=== PATIENT | female | born 1990 | race Caucasian/White ===

== ENCOUNTER 2018-04-19 11:50 | Emergency (ER) | payer BC, SELFPAY ==
--- NOTE | 2018-04-19 12:56 | EDPHYS ---
Physician Documentation [facility] Name: Michelle Guidry Age: 28 yrs Sex: Female : 1990 Arrival Date: 04/19/2018 Time: 11:53 Bed 23 Private MD: Leslie Cummings H ED Physician Sorin Diamond HPI: 04/19 12:47 This 28 yrs old Female presents to ER via Ambulatory with complaints of rn Anxiety, Shoulder Pain. 12:48 Reports anxiety, had bad panic attack on Wednesday in [place], has had anxiety since rn 14years old, used to take alprazolam, not anymore, no fever, feels better now, no chest pain, feels intermittent heart racing and tingling. Was taken to hospital on Wednesday, assumes everything ok. . Onset: The symptoms/episode began/occurred at an unknown time. Severity of symptoms: At their worst the symptoms were moderate in the emergency department the symptoms have improved. The patient has experienced similar episodes in the past. The patient has been recently seen by a physician:. 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 - Social history:: Smoking status: Patient/guardian denies using tobacco. - Family history:: not pertinent. - Ebola Screening: : Patient negative for fever greater than or equal to 101.5 degrees Fahrenheit, and additional compatible Ebola Virus Disease symptoms Patient denies exposure to infectious person Patient denies travel to an Ebola-affected area in the 21 days before illness onset No symptoms or risks identified at this time. - Hospitalizations: : No recent hospitalization is reported. ROS: 12:48 Constitutional: Negative for fever, chills, and weight loss, Eyes: Negative for injury, rn pain, redness, and discharge, Neck: Negative for injury, pain, and swelling, Cardiovascular: Negative for chest pain, and edema, Respiratory: Negative for cough, wheezing, and pleuritic chest pain, Abdomen/GI: Negative for abdominal pain, nausea, vomiting, diarrhea, and constipation, MS/Extremity: Negative for injury and deformity, Skin: Negative for injury, rash, and discoloration, Neuro: Negative for headache, weakness, and seizure. Exam: 12:48 Constitutional: This is a well developed, well nourished patient who is awake, alert, rn appears anxious Head/Face: Normocephalic, atraumatic. Eyes: Pupils equal round and reactive to light, extra-ocular motions intact. Cardiovascular: Regular rate and rhythm with a normal S1 and S2. No gallops, murmurs, or rubs. Normal PMI, no JVD. No pulse deficits. Respiratory: Lungs have equal breath sounds bilaterally, clear to auscultation and percussion. No rales, rhonchi or wheezes noted. No increased work of breathing, no retractions or nasal flaring. Skin: Warm, dry with normal turgor. Normal color with no rashes, no lesions, and no evidence of cellulitis. MS/ Extremity: Pulses equal, no cyanosis. Neurovascular intact. Full, normal range of motion. Equal circumference. Neuro: Awake and alert, GCS 15, oriented to person, place, time, and situation. Cranial nerves II-XII grossly intact. Motor strength 5/5 in all extremities. Sensory grossly intact. Cerebellar exam normal. Normal gait. Vital Signs: 12:01 BP 133 / 104; Pulse 94; Resp 18; Temp 99.4; Pulse Ox 98% ; Weight 56.7 kg; Height 5 ft. sv 0 in. (152.40 cm); Pain 0/10; 13:03 BP 127 / 90; Pulse 84; Resp 17; Pulse Ox 100% on R/A; Pain 0/10; ed1 12:01 Body Mass Index 24.41 (56.70 kg, 152.40 cm) sv MDM: 12:38 Patient medically screened. rn 12:55 Differential Diagnosis anxiety. Data reviewed: vital signs, nurses notes, and as a rn result, I will discharge patient. Counseling: I had a detailed discussion with the patient and/or guardian regarding: the historical points, exam findings, and any diagnostic results supporting the discharge/admit diagnosis, the need for outpatient follow up, to return to the emergency department if symptoms worsen or persist or if there are any questions or concerns that arise at home. Special discussion: I discussed with the patient/guardian in detail that at this point there is no indication for admission to the hospital. It is understood, however, that if the symptoms persist or worsen the patient needs to return immediately for re-evaluation. 04/19 12:45 Order name: Urine Test (obtain specimen); Complete Time: 12:55 rn Administered Medications: No medications were administered Disposition: 04/19/18 12:56 Discharged to Home. Impression: Anxiety disorder, unspecified. - Condition is Stable. - Discharge Instructions: Panic Attacks, Generalized Anxiety Disorder. - Prescriptions for Celexa 20 mg Oral Tablet - take 1 tablet by ORAL route once daily; 30 tablet. Valium 2 mg Oral Tablet - take 1 tablet by ORAL route once daily As needed; 10 tablet. - Medication Reconciliation Form, Thank You Letter, Antibiotic Education, Prescription Opioid Use form. - Follow up: Private Physician; When: As needed; Reason: Recheck today's complaints, Re-evaluation by your physician. - Problem is an ongoing problem. - Symptoms have improved. Signatures: Brenda Cade, RN RN Sorin Diamond MD MD rn Smirch, Shelby, RN RN Shannan Buenrostro LVN ENAMEL CRACKER ed1 Corrections: (The following items were deleted from the chart) 13:05 12:56 04/19/2018 12:56 Discharged to Home. Impression: Anxiety disorder, unspecified. ed1 Condition is Stable. Forms are Medication Reconciliation Form, Thank You Letter, Antibiotic Education, Prescription Opioid Use. Follow up: Private Physician; When: As needed; Reason: Recheck today's complaints, Re-evaluation by your physician. Problem is an ongoing problem. Symptoms have improved. rn
--- NOTE | 2018-04-19 12:56 | ER ---
Nurse's Notes [facility] Name: Michelle Guidry Age: 28 yrs Sex: Female : 1990 Arrival Date: 04/19/2018 Time: 11:53 Bed 23 Private MD: Leslie Cummings H Diagnosis: Anxiety disorder, unspecified Presentation: 04/19 11:57 Presenting complaint: Patient states: anxiety attack 2 days ago and feels SOB since sv then. Pt reports 2 days ago when she had it she passed out from hyperventilating and the EMS was there but doesn't remember anything. Transition of care: patient was not received from another setting of care. Onset of symptoms was April 17, 2018. Care prior to arrival: None. 11:57 Method Of Arrival: Ambulatory sv 11:57 Acuity: ROGER 4 sv 12:52 Risk Assessment: Do you want to hurt yourself or someone else? Patient reports no ed1 desire to harm self or others. Initial Sepsis Screen: Does the patient meet any 2 criteria? No. Patient's initial sepsis screen is negative. Does the patient have a suspected source of infection? No. Patient's initial sepsis screen is negative. 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 - Social history:: Smoking status: Patient/guardian denies using tobacco. - Family history:: not pertinent. - Ebola Screening: : Patient negative for fever greater than or equal to 101.5 degrees Fahrenheit, and additional compatible Ebola Virus Disease symptoms Patient denies exposure to infectious person Patient denies travel to an Ebola-affected area in the 21 days before illness onset No symptoms or risks identified at this time. - Hospitalizations: : No recent hospitalization is reported. Screenin:45 Abuse screen: Denies threats or abuse. Denies injuries from another. Nutritional ss screening: No deficits noted. Tuberculosis screening: Never had TB. Fall Risk None identified. Assessment: 12:45 General: Appears uncomfortable, Behavior is quiet, tearful. Reports "the other day I ss was out with some friends in [place] and there were so many people and I just had a really bad panic attack and then I just lost it and passed out. I just haven't felt the same since." Denies fever, feeling ill, fatigue, chills. Pain: Denies pain. Neuro: Level of Consciousness is awake, alert, obeys commands, Oriented to person, place, time, situation. Cardiovascular: Capillary refill < 3 seconds is brisk in bilateral fingers. Respiratory: Airway is patent Respiratory effort is even, unlabored, Respiratory pattern is regular, symmetrical. GI: Patient currently denies diarrhea, nausea, vomiting. EENT: Nares are clear Oral mucosa is moist. Derm: Skin is intact, is healthy with good turgor, Skin is dry, Skin is pink, warm \\T\\ dry. normal. 13:03 Reassessment: Patient appears in no apparent distress at this time. No changes from ed1 previously documented assessment. Patient and/or family updated on plan of care and expected duration. Pain level reassessed. Patient is alert, oriented x 3, equal unlabored respirations, skin warm/dry/pink. Patient states symptoms have not improved. Vital Signs: 12:01 BP 133 / 104; Pulse 94; Resp 18; Temp 99.4; Pulse Ox 98% ; Weight 56.7 kg; Height 5 ft. sv 0 in. (152.40 cm); Pain 0/10; 13:03 BP 127 / 90; Pulse 84; Resp 17; Pulse Ox 100% on R/A; Pain 0/10; ed1 12:01 Body Mass Index 24.41 (56.70 kg, 152.40 cm) sv ED Course: 11:53 Patient arrived in ED. as 11:54 Leslie Cummings DO is Private Physician. as 11:59 Triage completed. sv 12:01 Arm band placed on right wrist. sv 12:38 Sorin Diamond MD is Attending Physician. rn 12:45 Nuvia Mccord RN is Primary Nurse. ss 12:45 Patient has correct armband on for positive identification. Bed in low position. Call ss light in reach. 12:52 Primary Nurse role handed off by Nuvia Mccord RN ed1 12:52 Shannan Buenrostro LVN is Primary Nurse. ed1 13:03 No provider procedures requiring assistance completed. Patient did not have IV access ed1 during this emergency room visit. Administered Medications: No medications were administered Outcome: 12:56 Discharge ordered by . rn 13:03 Discharged to home ambulatory. ed1 13:03 Condition: good 13:03 Discharge instructions given to patient, Instructed on discharge instructions, follow up and referral plans. medication usage, Demonstrated understanding of instructions, follow-up care, medications, Prescriptions given X 2. 13:05 Patient left the ED. ed1 Signatures: Brenda Cade RN RN sv Martinez, Amelia as Nieto, Roman, MD MD rn Smirch, Shelby, RN RN Shannan Buenrostro LVN LVN ed1
== END 2018-04-19 13:05 | disposition home or self-care (01) ==
LOC: ER 11:50
DX: F41.9 Anxiety disorder, unspecified (principal); M25.519 Pain in unspecified shoulder; I10 Essential (primary) hypertension; Z88.1 Allergy status to other antibiotic agents; Z88.0 Allergy status to penicillin; Z88.2 Allergy status to sulfonamides
CPT/HCPCS: 99282

== ENCOUNTER 2020-08-31 17:55 | Emergency (ER) | payer OTHER, SELFPAY ==
[2020-08-31] MEDS ORDERED: PROMETHAZINE INJ 25 MG/ML AMP ONE (18:31)
[2020-08-31] MEDS ORDERED: NA CHLORIDE 0.9% 1,000 ML ONE (18:32)
[2020-08-31] MEDS ORDERED: MORPHINE 4 MG/ML SYR ONE (18:32)
[2020-08-31 18:56] LABS: Basophils % 0.3 % (0-1.3); Hematocrit 40.9 % (36.0-45.0); MPV 8.5 fL (7.6-11.3); RBC Red Blood Cell Count 4.79 M/uL (3.86-4.86)
[2020-08-31] MEDS ORDERED: DIAZEPAM 10 MG/2 ML INJ SYRINGE ONE (19:19)
--- NOTE | 2020-08-31 19:27 | ER ---
Nurse's Notes [facility] Name: Michelle Guidry Age: 30 yrs Sex: Female : 1990 Arrival Date: 08/31/2020 Time: 18:01 Bed 18 Private MD: Diagnosis: Uterine fibroid;pelvic pain Presentation: 08/31 18:15 Chief complaint: Patient states: pelvic pain that started yesterday after getting a em depo shot, is supposed to have a D\T\C on Sep.10 due to blood in uterus that is not draining, also reports nausea, denies fever or vaginal bleeding. 18:15 Method Of Arrival: Wheelchair em 18:15 Coronavirus screen: Client denies travel out of the [place] in the last 14 days. Ebola em Screen: Patient negative for fever greater than or equal to 101.5 degrees Fahrenheit, and additional compatible Ebola Virus Disease symptoms Patient denies exposure to infectious person. Patient denies travel to an Ebola-affected area in the 21 days before illness onset. No symptoms or risks identified at this time. Initial Sepsis Screen: Does the patient meet any 2 criteria? HR > 90 bpm. No. Patient's initial sepsis screen is negative. Does the patient have a suspected source of infection? No. Patient's initial sepsis screen is negative. Risk Assessment: Do you want to hurt yourself or someone else? Patient reports no desire to harm self or others. Onset of symptoms was August 30, 2020. 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 - Social history:: Smoking status: Patient denies any tobacco usage or history of. Screenin:15 Abuse screen: Denies threats or abuse. Denies injuries from another. Nutritional wh screening: No deficits noted. Tuberculosis screening: No symptoms or risk factors identified. Fall Risk None identified. Assessment: 19:10 General: Appears in no apparent distress. Behavior is calm, cooperative, appropriate wh for age. Pain: Complains of pain in abdomen Pain does not radiate. Pain currently is 7 out of 10 on a pain scale. Quality of pain is described as crampy. Neuro: Level of Consciousness is awake, alert, obeys commands, Oriented to person, place, time, situation, Appropriate for age. Cardiovascular: Heart tones S1 S2. Respiratory: Airway is patent Respiratory effort is even, unlabored, Respiratory pattern is regular, symmetrical, Breath sounds are clear bilaterally. GI: Abdomen is flat, Abd is soft Abdomen is tender to palpation. : No signs and/or symptoms were reported regarding the genitourinary system. EENT: No signs and/or symptoms were reported regarding the EENT system. Derm: Skin is intact, is healthy with good turgor, Skin is pink, warm \T\ dry. normal. Musculoskeletal: Circulation, motion, and sensation intact. 20:01 Reassessment: Patient appears in no apparent distress at this time. No changes from previously documented assessment. Patient and/or family updated on plan of care and expected duration. Pain level reassessed. Patient is alert, oriented x 3, equal unlabored respirations, skin warm/dry/pink. Patient states feeling better. Patient states symptoms have improved. Vital Signs: 18:15 BP 148 / 98; Pulse 103; Resp 18; Temp 98.3(O); Pulse Ox 100% on R/A; Height 4 ft. 11 em in. (149.86 cm); Pain 10/10; 19:45 BP 128 / 75; Pulse 76; Resp 18; Pulse Ox 99% on R/A; ED Course: 18:01 Patient arrived in ED. mr 18:11 Johnathon Vasquez, RN is Primary Nurse. em 18:15 Arm band placed on. em 18:16 Melissa Navarrete FNP-C is PHCP. snw 18:16 Sorin Diamond MD is Attending Physician. snw 18:32 Initial lab(s) drawn, by me, sent to lab. Inserted saline lock: 20 gauge in right em antecubital area, using aseptic technique. Blood collected. 18:36 Triage completed. em 19:15 Patient has correct armband on for positive identification. Placed in gown. Bed in low wh position. Call light in reach. Side rails up X 1. Pulse ox on. NIBP on. 19:31 US Pelvis Complete In Process Unspecified. EDMS 19:37 Ultrasound completed. Patient tolerated well. Notified CAP LINING MACHINE OPERATOR/PA vance. sg3 20:02 No provider procedures requiring assistance completed. IV discontinued, intact, bleeding controlled, No redness/swelling at site. Administered Medications: 18:32 Drug: NS 0.9% 1000 ml Route: IV; Rate: 1 bolus; Site: right antecubital; em 20:00 Follow up: Response: No adverse reaction; IV Status: Completed infusion 18:32 Drug: Phenergan 12.5 mg Route: IVP; Site: right antecubital; em 19:59 Follow up: Response: No adverse reaction; Nausea is decreased 18:34 Drug: morphine 4 mg Route: IVP; Site: right antecubital; em 20:00 Follow up: Response: No adverse reaction; Pain is decreased; RASS: Alert and Calm (0) 19:25 Drug: Valium 5 mg {Note: RASS 0.} Route: IVP; Site: right antecubital; 20:00 Follow up: Response: No adverse reaction; RASS: Alert and Calm (0) 19:59 Drug: TORadol 60 mg Route: IM; Site: right gluteus; 20:03 Follow up: Response: No adverse reaction Outcome: 19:26 Discharge ordered by . snw 20:02 Discharged to home ambulatory, with family. 20:02 Condition: stable 20:02 Discharge instructions given to patient, family, Instructed on discharge instructions, follow up and referral plans. no drinking with medication, no driving heavy equipment, medication usage, POC Demonstrated understanding of instructions, follow-up care, medications, POC Prescriptions given X 1. 20:11 Patient left the ED. Signatures: Dispatcher [employer] EDMS Melissa Navarrete, STEFANOC SERVICE ESTABLISHMENT ATTENDANT-Pamella Loredo Edgar, RN RN Deon Paz Leti Coles sg3
--- NOTE | 2020-08-31 19:27 | EDPHYS ---
Physician Documentation [facility] Name: Michelle Guidry Age: 30 yrs Sex: Female : 1990 Arrival Date: 08/31/2020 Time: 18:01 Bed 18 Private MD: ED Physician Sorin Diamond HPI: 08/31 18:22 This 30 yrs old Female presents to ER via Unassigned with complaints of snw Pelvic Pain. 18:22 Onset: The symptoms/episode began/occurred gradually, and became worse and became snw persistent today. Associated signs and symptoms: Pertinent positives: unable to stand erect without pain. Modifying factors: The patient symptoms are alleviated by nothing. It is unknown whether or not the patient has had similar symptoms in the past. The patient has been recently seen by a physician: Dr. Torre, pt had depo shot yesterday and D\T\C scheduled for Sep.11 to evacuate uterus of blood from an ablation 4 days ago. Pt called Dr. Torre and has not gotten an answer. 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 - Social history:: Smoking status: Patient denies any tobacco usage or history of. ROS: 18:22 Constitutional: Negative for fever, chills, and weight loss, Eyes: Negative for injury, snw pain, redness, and discharge, ENT: Negative for injury, pain, and discharge, Neck: Negative for injury, pain, and swelling, Cardiovascular: Negative for chest pain, palpitations, and edema, Respiratory: Negative for shortness of breath, cough, wheezing, and pleuritic chest pain, Abdomen/GI: Negative for abdominal pain, nausea, vomiting, diarrhea, and constipation, Back: Negative for injury and pain, MS/Extremity: Negative for injury and deformity, Skin: Negative for injury, rash, and discoloration, Neuro: Negative for headache, weakness, numbness, tingling, and seizure, Psych: Negative for depression, anxiety, suicide ideation, homicidal ideation, and hallucinations. 18:22 : Positive for pelvic pain, Negative for vaginal bleeding. Exam: 18:24 Head/Face: Normocephalic, atraumatic. snw 18:24 Eyes: Pupils equal round and reactive to light, extra-ocular motions intact. Lids and lashes normal. Conjunctiva and sclera are non-icteric and not injected. Cornea within normal limits. Periorbital areas with no swelling, redness, or edema. ENT: Nares patent. No nasal discharge, no septal abnormalities noted. Tympanic membranes are normal and external auditory canals are clear. Oropharynx with no redness, swelling, or masses, exudates, or evidence of obstruction, uvula midline. Mucous membranes moist. Neck: Trachea midline, no thyromegaly or masses palpated, and no cervical lymphadenopathy. Supple, full range of motion without nuchal rigidity, or vertebral point tenderness. No Meningismus. Chest/axilla: Normal chest wall appearance and motion. Nontender with no deformity. No lesions are appreciated. Cardiovascular: Regular rate and rhythm with a normal S1 and S2. No gallops, murmurs, or rubs. Normal PMI, no JVD. No pulse deficits. Respiratory: Lungs have equal breath sounds bilaterally, clear to auscultation and percussion. No rales, rhonchi or wheezes noted. No increased work of breathing, no retractions or nasal flaring. Back: No spinal tenderness. No costovertebral tenderness. Full range of motion. Skin: Warm, dry with normal turgor. Normal color with no rashes, no lesions, and no evidence of cellulitis. MS/ Extremity: Pulses equal, no cyanosis. Neurovascular intact. Full, normal range of motion. Neuro: Awake and alert, GCS 15, oriented to person, place, time, and situation. Cranial nerves II-XII grossly intact. Motor strength 5/5 in all extremities. Sensory grossly intact. Cerebellar exam normal. Normal gait. Psych: Awake, alert, with orientation to person, place and time. Behavior, mood, and affect are within normal limits. 18:24 Constitutional: The patient appears alert, awake, anxious, in obvious pain. 18:24 Abdomen/GI: Inspection: distension, that is moderate, gravid appearance, is noted, Bowel sounds: normal, Palpation: moderate abdominal tenderness, in all quadrants. Vital Signs: 18:15 BP 148 / 98; Pulse 103; Resp 18; Temp 98.3(O); Pulse Ox 100% on R/A; Height 4 ft. 11 em in. (149.86 cm); Pain 10/10; 19:45 BP 128 / 75; Pulse 76; Resp 18; Pulse Ox 99% on R/A; wh MDM: 18:18 Patient medically screened. snw 18:25 Data reviewed: vital signs, nurses notes. snw 18:50 ED course: pt to have ultrasound at this time. snw 19:23 Data interpreted: Pulse oximetry: on room air is 100 %. Interpretation: normal. snw Counseling: I had a detailed discussion with the patient and/or guardian regarding: the historical points, exam findings, and any diagnostic results supporting the discharge/admit diagnosis, the presence of at least one elevated blood pressure reading (>120/80) during this emergency department visit, lab results, radiology results, the need for outpatient follow up, to return to the emergency department if symptoms worsen or persist or if there are any questions or concerns that arise at home. Response to treatment: the patient's symptoms have mildly improved after treatment. Special discussion: Based on the patient's Hx, exam, and Dx evaluation, there is no indication for emergent surgery or inpatient Tx. It is understood by the patient/guardian that if the Sx's persist or worsen they need to return immediately for re-evaluation. 19:33 Response to treatment: the patient's symptoms have markedly improved after treatment. snw 08/31 18:17 Order name: CBC with Diff snw 08/31 18:17 Order name: TS snw 08/31 18:18 Order name: US Pelvis Complete snw 08/31 19:04 Order name: Manual Differential EDMS 08/31 20:10 Order name: ABO/RH no charge EDMS Administered Medications: 18:32 Drug: NS 0.9% 1000 ml Route: IV; Rate: 1 bolus; Site: right antecubital; em 20:00 Follow up: Response: No adverse reaction; IV Status: Completed infusion 18:32 Drug: Phenergan 12.5 mg Route: IVP; Site: right antecubital; em 19:59 Follow up: Response: No adverse reaction; Nausea is decreased wh 18:34 Drug: morphine 4 mg Route: IVP; Site: right antecubital; 20:00 Follow up: Response: No adverse reaction; Pain is decreased; RASS: Alert and Calm (0) 19:25 Drug: Valium 5 mg {Note: RASS 0.} Route: IVP; Site: right antecubital; 20:00 Follow up: Response: No adverse reaction; RASS: Alert and Calm (0) 19:59 Drug: TORadol 60 mg Route: IM; Site: right gluteus; 20:03 Follow up: Response: No adverse reaction Disposition: 09/01 07:37 Co-signature as Attending Physician, Sorin Diamond MD. rn Disposition: 08/31/20 19:26 Discharged to Home. Impression: Uterine fibroid, pelvic pain. - Condition is Stable. - Discharge Instructions: Uterine Fibroids, Pelvic Pain, Female, Abdominal or Pelvic Ultrasound. - Prescriptions for Tylenol- Codeine #3 300-30 mg Oral Tablet - take 2 tablet by ORAL route every 6 hours As needed; 30 tablet. - Medication Reconciliation Form, Thank You Letter, Antibiotic Education, Prescription Opioid Use form. - Follow up: Emergency Department; When: As needed; Reason: Worsening of condition. Follow up: Private Physician; When: 2 - 3 days; Reason: Recheck today's complaints, Continuance of care, Re-evaluation by your physician. Signatures: Dispatcher [employer] Melissa Bustamante, ARPAN-[employer] PERFORMANCE MAKEUP ARTIST-Csnw Johnathon Vasquez RN RN em Nieto, Roman, MD MD rn Habalo, Winsy Corrections: (The following items were deleted from the chart) 08/31 20:11 19:26 08/31/2020 19:26 Discharged to Home. Impression: Uterine fibroid; pelvic pain. Condition is Stable. Forms are Medication Reconciliation Form, Thank You Letter, Antibiotic Education, Prescription Opioid Use. Follow up: Emergency Department; When: As needed; Reason: Worsening of condition. Follow up: Private Physician; When: 2 - 3 days; Reason: Recheck today's complaints, Continuance of care, Re-evaluation by your physician. snw
--- NOTE | 2020-08-31 19:42 | RAD REPORT ---
EXAM DESCRIPTION: US - Pelvis Complete - 08/31/2020 7:31 pm CLINICAL HISTORY: severe pain Pelvic pain. COMPARISON: No comparisons FINDINGS: The uterus is seen to contain a 2.2 x 2.1 cm mass along the posterior myometrium abutting the endometrial stripe. This suggests a submucosal fibroid. The uterus measures 7.7 x 4.0 x 4.5 cm. The endometrial stripe measures 4 mm, normal. The right ovary is obscured by bowel gas. The left ovary is normal in size, shape and echotexture measuring 4.5 x 2.1 cm. Normal blood flow is seen to the left ovary. Mild pelvic ascites. IMPRESSION: 2.2 cm submucosal fibroid along the posterior myometrial fundus region. Nonvisualization of the right ovary due to bowel gas. Mild pelvic ascites.
[2020-08-31 20:00] LABS: Blood Morphology Comment NOT SEEN (NOT SEEN); Platelet Estimate ADEQ
[2020-08-31] MEDS ORDERED: KETOROLAC 30 MG/ML INJ ONE (20:06)
[2020-08-31 20:18] VITALS: TEMP 98.3
[2020-08-31 20:20] VITALS: BP 128/75; O2SAT 99
== END 2020-08-31 20:11 | disposition home or self-care (01) ==
LOC: ER 17:55
DX: D25.0 Submucous leiomyoma of uterus (principal); I10 Essential (primary) hypertension; Z88.0 Allergy status to penicillin; Z88.1 Allergy status to other antibiotic agents; Z88.2 Allergy status to sulfonamides
CPT/HCPCS: 96361; 85025; 36415; 86900; 86850; 86901; 76856; 96375; 96372; 96374; 99284; J2550; J3360; J7030

== ENCOUNTER 2024-09-26 07:47 | Emergency (ER) | payer BC ==
--- OUTSIDE RECORDS SUMMARY | 2024-09-26 07:50 | XMS REPORT | Continuity of Care Document ---
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 Name Role Phone COSTA ACHARYA JR Primary Care Physician Jon Morel MD Attending Clinician JON MÁRQUEZ Attending Clinician Unavailable DILMA_[email or web address]_S Attending Clinician Unavaila LAURA Luong Attending Clinician Unavailable JON MÁRQUEZ Admitting Clinician Unavailable DILMA_[email or web address]_S Admitting Clinician Unavaila anne-marie Payers Payer Name Policy Type Policy Number Effective Date Expirati on Date Source MULTIPLAN-GPA/PP O 2 [id number] 2022 00:00:00 Allergies, Adverse Reactions, Alerts Allergy Name Allergy Type Status Severity Reaction(s) Onset Date Inactive Date Treating Clinician Comments Source Predniso ne Propensi ty to adverse reaction s Active Other - See comments 03-30 00:00: [address] [facility] PREDNISO NE DRUG INGREDI Active Other-Cmnt 03-30 00:00: 00 [facility] CIPROFLO XACIN (BULK) DRUG Active Rash 2015-11 00:00: 00 [facility] SULFA (SULFONA MIDE ANTIBIOT ICS) Drug Class Active Rash 2015-11 00:00: 00 [facility] Ciproflo xacin (Bulk) Propensi ty to adverse reaction s Active Rash 2015-11 00:00: 00 [facility] Sulfa (Sulfona mide Antibiot ics) Propensi ty to adverse reaction s Active Rash 2015-11 00:00: 00 [facility] Social History Social Habit Start Date Stop Date Quantity Comments [facility] 1990 [facility]00 1990 00:00:00 [facility] Smoking Status Start Date Stop Date Source Tobacco smoking consumption unknown [facility] Medications Ordered Medication Name Filled Medication Name Start Date Stop Date Current Medication? Ordering Clinician Indication Dosage Frequency Signature (SIG) Comments Components Source iopamidol (ISOVUE 370-500 mL) injection 80 mL 2022-11 22:15: 00 09-22 22:15 :00 No [id number] 80mL 80 mL, Intravenou s, ONCE, 1 dose, On Wed09/22/23 at 1615, Routine [facility] NaCl 0.9% (NS) injection 5 mL 2022-11 21:10: 31 Yes 5mL 5 mL, Slow IV Push, PRN - SEE INSTRUCTIO NS, Starting on Wed09/22/23 at 1510, Until Discontinu ed, [address] [facility] lisinopril 20 mg tablet 2022-11 19:00: 46 09-22 00:00 :00 No 20mg Take 20 mg by mouth daily. [facility] diazePAM (VALIUM) 2 mg tablet 2022-11 19:00: 46 09-22 00:00 :00 No 2mg Take 2 mg by mouth 3 (three) times daily. [facility] methIMAzole 5 mg tablet 2022-11 00:00: 00 Yes [id number] 5mg Take 1 tablet by mouth in the morning. [facility] atenoloL 25 mg tablet 2022-11 00:00: 00 Yes [id number] 25mg Take 1 tablet by mouth in the morning. [facility] gabapentin (NEURONTIN) 100 mg capsule 08-01 00:00: 00 09-22 00:00 :00 No 100mg Take 1 capsule by mouth 3 (three) times daily. [facility] traMADOL (ULTRAM) 50 mg tablet 08-01 00:00: 00 09-22 00:00 :00 No 50mg Take 1 tablet by mouth every 6 (six) hours as needed for Pain (scale 4-6). [facility] ondansetron (ZOFRAN) 4 mg tablet 05-06 00:00: 00 Yes 4mg Take 1 tablet by mouth every 8 (eight) hours as needed for Nausea and Vomiting (N/V). [facility] traMADOL (ULTRAM) 50 mg tablet 04-26 00:00: 00 09-22 00:00 :00 No 50mg Take 1 tablet by mouth every 6 (six) hours as needed for Pain (scale 7-10). [facility] ketorolac (TORADOL) 10 mg tablet 2015-11 00:00: 00 09-22 00:00 :00 No 10mg Take 1 tablet by mouth every 6 (six) hours as needed for Pain (scale 7-10). [facility] Vital Signs Vital Name Observation Time Observation Value Comments S daisy Systolic blood pressure 2023-09-23 01:00:00 140 mm[Hg] [facility] Diastolic blood pressure 2023-09-23 01:00:00 100 mm[Hg] [facility] Heart rate 2023-09-23 01:00:00 94 /min [facility] Body temperature 2023-09-23 01:00:00 36.94 Yoselin [facility] Respiratory rate 2023-09-23 01:00:00 18 /min [facility] Oxygen saturation in Arterial blood by Pulse oximetry 2023-09-23 01:00:00 100 /min [facility] Body height 2023-09-22 20:59:00 149.9 cm [facility] Body weight 2023-09-22 20:59:00 65.318 kg [facility] BMI 2023-09-22 20:59:00 29.08 kg/m2 [facility] Procedures Procedure Date / Time Performed Performing Clinician Source URINALYSIS 2023-09-22 22:58:00 Jon M[facility]quez [facility] POCT GLUCOSE(AGE >30DAYS) 2023-09-22 21:42:00 Jon Márquez [facility] POCT GLUCOSE (AUTOMATED) 2023-09-22 21:40:00 Jon Márquez [facility] TROPONIN I 2023-09-22 21:36:00 Jon M[facility]quez [facility] FREE T4 2023-09-22 21:36:00 Jon M[facility]quez [facility] THYROID STIMULATING HORMONE 2023-09-22 21:36:00 Jon Márquez [facility] BASIC METABOLIC PANEL (NA, K, CL, CO2, GLUCOSE, BUN, CREATININE, CA) 2023-09-22 21:36:00 Jon Márquez [facility] CBC WITHOUT DIFF 2023-09-22 21:36:00 Jon Márquez [facility] PROTHROMBIN TIME / INR 2023-09-22 21:36:00 Neptali Márquez [facility] ACTIVATED PARTIAL THRMPLAS SHAR 2023-09-22 21:36:00 Jon Márquez [facility] CT STROKE ANGIOGRAM HEAD 2023-09-22 21:33:00 Jon Márquez [facility] CT STROKE ANGIOGRAM NECK 2023-09-22 21:33:00 Jon Márquez [facility] CT STROKE HEAD WO CONTRAST 2023-09-22 21:22:00 Jon Márquez [facility] NOTICE OF PRIVACY PRACTICES 2023-09-22 20:53:59 Doctor Unassigned, [place] [facility] CONSENT/REFUSAL FOR DIAGNOSIS AND TREATMENT 2023-09-22 20:53:04 Doctor Unassigned, [place] [facility] Encounters Start Date/Time End Date/Time Encounter Type Admission Type Attending Clinicians Care Facility Care Department Encounter ID Source 2023-09-22 15:11:00 2023-09-22 19:14:[address] [facility] [id number] [facility] 2023-09-22 15:11:00 2023-09-22 19:14:00 Emergency X JON MÁRQUEZ [facility] ERT [id number] [facility] 2023-09-08 00:00:00 2023-09-08 00:00:00 Outpatient GC_[email or web address] diyala_S PRIV PRIV [id number] [facility] 2022-11-25 16:30:00 2022-11-25 16:30:00 Outpatient LAURA CONWAY [id number] Yarelis Hernández Results Test Description Test Time Test Comments Results Result Co mments Source [id number] 22:10:39* Test Item Value Reference Range Interpretation Comme nts FREE T4 (test code = 9503305433) 3.59 See_Comment H [Automated messa ge] The system which generated this result transmitted reference range: 0.78 - 2.20 ng/dL:. The reference range was not used to interpret this result as normal/abnormal. Lab Interpretation (test code = 22350-9) [facility]normal [facility] - Code [id number] 22:05:39* Test Item Value Reference Range Interpretation Comme nts TROPONIN I (test code = 2681712382) 0.025 ng/mL <=0.034 JOSE (test code = JOSE) Reference (Normal) Range (defined by the 99th percentile reference limit): <= 0.034 ng/mL Note: Cardiac troponin begins to rise 3-4 hours after the onset of ischemia. Repeat in 4-6 hours if the sample was drawn within 3-4 hours of the onset of the symptom and found normal. Diagnosis of myocardial injury is made with acute changes in cTn concentrations with at least one serial sample above the 99th percentile upper reference limit (URL), taken together with the patient's clinical presentation. Biotin has been reported to cause a negative bias, interpret results relative to patient's use of biotin. Lab Interpretation (test code = 95646-2) Normal [facility] - Code [id number] 21:57:39* Test Item Value Reference Range Interpretation Comme [facility] APTT Patient (test code = 3173-2) 26 See_Comment [Automated message] The system which generated this result transmitted reference range: 23 - 38 Seconds. The reference range was not used to interpret this result as normal/abnormal. JOSE (test code = JOSE) The [facility] patient population mean normal value for aPTT is 30 seconds. Lab Interpretation (test code = 68154-7) Normal [facility] / INR - Code [id number] 21:55:41* Test Item Value Reference Range Interpretation Comme [facility] PROTIME PATIENT (test code = 5964-2) 13.0 See_Comment [Automated messa ge] The system which generated this result transmitted reference range: 12.0 - 14.7 Seconds. The reference range was not used to interpret this result as normal/abnormal. INR (test code = 6301-6) 1.0 Normal INR <1.1; Warfarin Therapeutic range 2.0 to 3.0 or 2.5 to 3.5, depending upon the indications. Lab Interpretation (test code = 39840-1) Normal [facility] (NA, K, CL, CO2, Glucose, BUN, Creatinine, CA) - Code [id number] 21:53:19* Test Item Value Reference Range Interpretation Comme [facility] NA (test code = 1262077522) 140 mmol/L 135-145 K (test code = 2522406024) 4.4 mmol/L 3.5-5.0 CL (test code = 5457269376) 103 mmol/L 98-108 CO2 TOTAL (test code = 4004141224) 22 mmol/L 23-31 L AGAP (test code = 2384420314) 15 2-16 BUN (test code = 4947254011) 8 mg/dL 7-23 GLUCOSE (test code = 4150782730) 112 mg/dL 70-110 H CREATININE (test code = 6737203917) 0.42 mg/dL 0.50-1.04 L CALCIUM (test code = 0875466042) 10.0 mg/dL 8.6-10.6 eGFR (test code = 29562-9) 132.6 mL/min/1.73m2 CKD-EPI eGFR (2020). Assuming creatinine has been stable day-to-day for at least three months, the eGFR indicates Category G1 (>= 90 mL/min/1.73 m2) Lab Interpretation (test code = 49693-6) Abnormal [facility] without Diff - Code [id number] 21:44:19* Test Item Value Reference Range Interpretation Comme nts WBC (test code = 6690-2) 8.39 See_Comment [Automated message] The system which generated this result transmitted reference range: 4.30 - 11.10 10*3/?L. The reference range was not used to interpret this result as normal/abnormal. RBC (test code = 789-8) 5.50 See_Comment H [Automated message] The system which generated this result transmitted reference range: 3.93 - 5.25 10*6/?L. The reference range was not used to interpret this result as normal/abnormal. HGB (test code = 718-7) 14.9 g/dL 11.6-15.0 HCT (test code = 4544-3) 45.2 % 35.7-45.2 MCH (test code = 785-6) 27.1 pg 25.9-32.8 MCV (test code = 787-2) 82.2 fL 80.6-95.5 MCHC (test code = 786-4) 33.0 g/dL 31.6-35.1 PLT (test code = 777-3) 353 See_Comment [Automated message] The system which generated this result transmitted reference range: 166 - 358 10*3/?L. The reference range was not used to interpret this result as normal/abnormal. MPV (test code = 85460-0) 10.4 fL 9.5-12.9 RDW-CV (test code = 788-0) 11.5 % 12.0-15.5 L RDW-SD (test code = 51039-4) 34.4 fL 39.0-49.9 L NRBC x10^3 (test code = 5520453934) See_Comment [Automated messa ge] The system which generated this result transmitted reference range: 10*3/?L. The reference range was not used to interpret this result as normal/abnormal. NRBC/100 WBC (test code = 0016541017) 0.0 See_Comment [Automated messa ge] The system which generated this result transmitted reference range: 0.0 - 10.0 /100 WBCs. The reference range was not used to interpret this result as normal/abnormal. IPF % (test code = 0282011841) Lab Interpretation (test code = 97499-1) Abnormal [facility] GLUCOSE (AUTOMATED)2023-09-22 21:42:27* Test Item Value Reference Range Interpretation Comme nts POCT GLU (test code = 3951376214) 126 mg/dL 70-110 H Notified Provide r Lab Interpretation (test code = 37413-3) Abnormal [facility] Glucose (Age >30 Days) - Code Stroke 2023-09-22 21:42:00* Test Item Value Reference Range Interpretation Comme nts POCT Glu (age>30days) (test code = 3342) 126 mg/dL 70-110 A Lab Interpretation (test cod e = 34252-5) Abnormal [facility]
[2024-09-26 09:14] LABS: Specific Gravity 1.022 (1.005-1.030); Sqamous Epithelial <5 /HPF (None Seen); Urine Bacteria <20 /HPF (<20); Urine Bilirubin NEGATIVE (Negative); Urine Blood Negative (Negative); Urine Clarity Extremely Turbid (Clear); Urine Color Yellow (Yellow); Urine Crystals Unidentified Few /HPF (None Seen); Urine Culture Reflex Order REFLEXED; Urine Glucose NEGATIVE (Negative); Urine Ketones NEGATIVE (Negative); Urine Microscopic Reflex YN ORDER UMIC; Urine Mucus 1+ /HPF (None Seen); Urine Nitrite NEGATIVE (Negative); Urine Protein NEGATIVE (Negative); Urine Urobilinogen Normal (Normal); Urine WBC 20-50 /HPF (<5); Urine WBC Clump Rare /HPF (None Seen); Urine Yeast (Budding) Trace /HPF (None Seen); Urine pH 5.5 (5.0-7.0)
--- NOTE | 2024-09-26 09:23 | EDPHYS ---
Physician Documentation [facility] Name: Michelle Guidry Age: 34 yrs Sex: Female : 1990 Arrival Date: 09/26/2024 Time: 07:47 Bed 14 Private MD: ED Physician Stephen Wilkinson HPI: 09/26 09:17 This 34 yrs old Female presents to ER via Ambulatory with complaints of ec2 Urinary Problem. 09:17 Patient arrives today for dysuria. Patient reports some occasional nausea. No fevers or ec2 chills. Reports some flank pain as well. Reports no significant medical problems.. 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 - Infectious Disease History:: Denies. - Social history:: Smoking status: Patient denies any tobacco usage or history of. ROS: 09:17 Constitutional: as per hpi ec2 Exam: 09:17 Constitutional: GEN: NAD Head: atraumatic Eyes: EOMI Ears: External ears are ec2 normal. CV: regular rate LUNGS: no respiratory distress ABD: non-distended, soft, mild right CVA TTP. Abdomen is not guarding or rigid SKIN: no evidence of rashes MSK: no evidence of trauma Vital Signs: 08:07 BP 134 / 98; Pulse 94; Resp 16; Pulse Ox 100% on R/A; Weight 62.6 kg; Height 5 ft. 0 iw in. ; Pain 0/10; 10:00 BP 132 / 88; Pulse 84; Resp 16; Pulse Ox 100% on R/A; ko1 08:07 Body Mass Index 26.95 (62.60 kg, 152.4 cm) iw 08:07 Pain Scale: Adult iw MDM: 09:13 Medical Screening Exam initiated ec2 09:17 Data reviewed: vital signs, nurses notes. ED course: Patient arrives today for dysuria. ec2 Examination is remarkable for right CVA TTP. Urine studies show infectious markers consistent with urinary tract infection. Did order urine testing however patient has had a hysterectomy in the past. Will start the patient on antibiotics for pyelonephritis. Patient otherwise is simply well-appearing and in no acute distress with reassuring hemodynamics. Will discharge home have the patient follow-up PCP. Return precautions given.. 09:29 ED course: Patient reports multiple medication allergies however states that she ec2 believes she has tolerated Keflex which we will proceed with Keflex and monitor here.. 09:50 ED course: Patient tolerated Keflex without issue. Will prescribe the patient ec2 cefpodoxime for urinary tract infection, possible pyelonephritis. Return precautions given. 09/26 08:20 Order name: Urinalysis w/ reflexes; Complete Time: 09:16 iw 09/26 09:13 Order name: Test, Urine ec2 09/26 09:17 Order name: Urine Culture EDMS Administered Medications: 09:44 Drug: Cephalexin PO 500 mg PO once Route: PO; ko1 09:59 Follow up: Response: No adverse reaction; Medication administered at discharge. ko1 09:44 Drug: Ondansetron Oral Disintegrating Tablet Oral Disintegrating Tablet 4 mg PO once ko1 Route: PO; 09:59 Follow up: Response: No adverse reaction ko1 Disposition Summary: 09/26/24 09:51 Discharge Ordered Notes: Location: Home(09/26/24 09:51) ec2 Condition: Stable(09/26/24 09:51) ec2 Diagnosis - UTI/ Urinary tract infection, site not specified(09/26/24 09:51) ec2 Followup: ec2 - With: Private Physician - When: - Reason: Recheck today's complaints Discharge Instructions: - Discharge Summary Sheet ec2 - Urinary Tract Infection, Adult, [id number] ec2 Forms: - Medication Reconciliation Form ec2 - Antibiotic Education ec2 - Prescription Opioid Use ec2 - Patient Portal Instructions ec2 - Leadership Thank You Letter ec2 Prescriptions: - Zofran 4 mg Oral Tablet - take 1 tablet ORAL route every 12 hours As needed; 20 tablet; Refills: 0, ec2 Product Selection Permitted - cefpodoxime 100 mg Oral Tablet - take 1 tablet ORAL route every 12 hours for 10 days take with food; 20 tablet; ec2 Refills: 0, Product Selection Permitted Signatures: Dispatcher [employer] Melida Munoz RN RN iw Oliver, Kathy, RN RN ko1 Stephen Wilkinson MD MD ec2 Corrections: (The following items were deleted from the chart) : Home ec2 ec2 Stable ec2 ec2 : UTI/ Urinary tract infection, site not specified ec2 ec2
--- NOTE | 2024-09-26 09:23 | ER ---
Nurse's Notes [facility] Name: Michelle Guidry Age: 34 yrs Sex: Female : 1990 Arrival Date: 09/26/2024 Time: 07:47 Bed 14 Private MD: Diagnosis: UTI/ Urinary tract infection, site not specified Presentation: 09/26 08:07 Chief complaint: Patient states: thinks she has a UTI, having burning with urination iw and right flank pain, started last Wednesday , has been taking AZO. Coronavirus screen: At this time, the client does not indicate any symptoms associated with coronavirus-19. Ebola Screen: No symptoms or risks identified at this time. Initial Sepsis Screen: Does the patient meet any 2 criteria? No. Patient's initial sepsis screen is negative. Does the patient have a suspected source of infection? No. Patient's initial sepsis screen is negative. Risk Assessment: Do you want to hurt yourself or someone else? Patient reports no desire to harm self or others. Onset of symptoms was September 19, 2024. 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 - Infectious Disease History:: Denies. - Social history:: Smoking status: Patient denies any tobacco usage or history of. Screenin:40 [facility] ED Fall Risk Assessment (Adult) History of falling in the last 3 months, ko1 including since admission No falls in past 3 months (0 pts) Confusion or Disorientation No (0 pts) Intoxicated or Sedated No (0 pts) Impaired Gait No (0 pts) Mobility Assist Device Used No (0 pt) Altered Elimination No (0 pt) Score/Fall Risk Level 0 - 2 = Low Risk Oriented to surroundings, Maintained a safe environment, Assessed \T\ reinforced patient's understanding of fall precautions, Hourly rounding (assess needs \T\ fall precautionary measures) done. Abuse screen: Denies threats or abuse. Denies injuries from another. Nutritional screening: No deficits noted. Tuberculosis screening: No symptoms or risk factors identified. Assessment: 09:40 General: Appears in no apparent distress. Behavior is calm, cooperative, appropriate ko1 for age. Pain: Complains of pain in left low back and right low back. Neuro: No deficits noted. Cardiovascular: No deficits noted. Respiratory: No deficits noted. GI: No deficits noted. : Reports burning with urination. EENT: No deficits noted. Derm: No deficits noted. Musculoskeletal: No deficits noted. Vital Signs: 08:07 BP 134 / 98; Pulse 94; Resp 16; Pulse Ox 100% on R/A; Weight 62.6 kg; Height 5 ft. 0 iw in. ; Pain 0/10; 10:00 BP 132 / 88; Pulse 84; Resp 16; Pulse Ox 100% on R/A; ko1 08:07 Body Mass Index 26.95 (62.60 kg, 152.4 cm) iw 08:07 Pain Scale: Adult iw ED Course: 07:50 Patient arrived in ED. mg5 08:08 Triage completed. iw 08:10 Arm band placed on. iw 09:07 Stephen Wilkinson MD is Attending Physician. ec2 09:20 Debbie Monroe, ROSETTE is Primary Nurse. ko1 09:40 Patient has correct armband on for positive identification. Allergy band placed. Bed in ko1 low position. Call light in reach. Provided Education on: labs, meds. Pulse ox on. NIBP on. Door closed. Noise minimized. Lights dimmed. 09:40 No provider procedures requiring assistance completed. Patient did not have IV access ko1 during this emergency room visit. Administered Medications: :44 Drug: Cephalexin PO 500 mg PO once Route: PO; ko1 09:59 Follow up: Response: No adverse reaction; Medication administered at discharge. ko1 09:44 Drug: Ondansetron Oral Disintegrating Tablet Oral Disintegrating Tablet 4 mg PO once ko1 Route: PO; 09:59 Follow up: Response: No adverse reaction ko1 Medication: 10:00 VIS not applicable for this client. ko1 Outcome: :22 Discharge ordered by . ec2 09:51 Discharge ordered by . ec2 10:01 Discharged to home ambulatory, ko1 10:01 Condition: stable 10:01 Discharge instructions given to patient, Instructed on discharge instructions, follow up and referral plans. medication usage, Demonstrated understanding of instructions, follow-up care, medications, Prescriptions given X 2, 10:09 Patient left the ED. ko1 Addendum: 09/29/2024 07:49 Addendum: Culture Results: Positive urine culture. No further action required. Bacteria e b sensitive to prescribed antibiotic. Signatures: Melida Boyd, RN Vee Ribeiro Kathy, RN RN ko1 Belen Castelan mg5 Stephen Wilkinson MD MD ec2
[2024-09-26] MEDS ORDERED: CEPHALEXIN 250 MG CAP ONE (09:37)
[2024-09-26] MEDS ORDERED: ONDANSETRON 4 MG (ODT) TAB ONE (09:37)
[2024-09-26 10:20] VITALS: O2SAT 100
[2024-09-26 10:24] VITALS: BP 132/88
[2024-09-26 15:27] LABS: Specific Gravity 1.022 (1.005-1.030)
== END 2024-09-26 10:09 | disposition home or self-care (01) ==
LOC: ER 07:47
DX: N39.0 Urinary tract infection, site not specified (principal); I10 Essential (primary) hypertension; F41.9 Anxiety disorder, unspecified
CPT/HCPCS: 87088; 81001; 87086; 81025; 87077; 87186; 99283; Q0162

== ENCOUNTER 2025-06-17 15:21 | Emergency (ER) | payer BC ==
[2025-06-17] MEDS ORDERED: MORPHINE 4 MG/ML SYR ONE ×2 (15:57→18:07)
[2025-06-17] MEDS ORDERED: NA CHLORIDE 0.9% 1,000 ML ONE (15:57)
[2025-06-17] MEDS ORDERED: ONDANSETRON 4 MG/2 ML VIAL ONE (15:57)
--- NOTE | 2025-06-17 16:06 | RAD REPORT ---
EXAM: Chest Pa And Lat (2 Views) HISTORY: 35 years Female Cough;Congestion COMPARISON: 05/31/2025 FINDINGS: LUNGS/PLEURA: The lungs are clear. No pleural effusions or pneumothorax. No pulmonary edema. CARDIAC/MEDIASTINUM: Mild cardiomegaly UPPER ABDOMEN: No significant abnormality. BONES: No acute abnormality. LINES/TUBES/OTHER: N/A IMPRESSION: No evidence of acute cardiopulmonary disease.
[2025-06-17 16:30] LABS: Absolute Lymphocytes (CBC) 1.7 K/uL (0.7-4.9); Hematocrit 40.3 % (36.0-45.0); Hemoglobin 13.8 g/dL (12.0-15.0); MCH 28.7 pg (27.0-35.0); MCHC 34.3 g/dL (32.0-36.0); MCV 83.7 fL (80-100); MPV 7.7 fL (7.6-11.3); Nucleated RBC Absolute Count 0.0 (0-0); Nucleated Red Blood Cells % 0.0 % (0-0); RBC Red Blood Cell Count 4.81 M/uL (3.86-4.86); White Blood Count 23.30 thou/uL (4.3-10.9)
[2025-06-17 16:50] LABS: ALT/SGPT 32 U/L (13-56); Albumin 4.0 g/dL (3.4-5.0); Albumin/Globulin Ratio 1.0 (1.1-1.8); Alkaline Phosphatase 124 U/L (45-117); Anion Gap 11.7 mEq/L (5.0-15.0); BUN Blood Urea Nitrogen 16 mg/dL (7-18); Globulin 4.1 g/dL (2.3-3.5); Glucose Level 126 mg/dL (74-106); Lipase 27 U/L (13-75); Potassium 3.7 mEq/L (3.5-5.1)
[2025-06-17 16:55] LABS: Urine Microscopic Reflex YN NO UMIC
[2025-06-17 17:00] LABS: AST/SGOT < 10 U/L (15-37)
--- NOTE | 2025-06-17 17:06 | RAD REPORT ---
Stone Protocol CLINICAL INDICATION: Female, 35 years old.ABD PAIN TECHNIQUE: CT abdomen and pelvis was performed, without IV contrast, as per department protocol using a CT stone protocol. Axial, sagittal and coronal reconstructions were obtained. One or more of the following dose reduction techniques were used: Automated exposure control, adjustment of the mA and/o r kV according to the patient size, and/or iterative reconstruction. Unless otherwise specified, incidental findings do not require dedicated imaging follow-up. [id number]. IV CONTRAST: Not administered. COMPARISON: 05/31/2025 FINDINGS: The lack of intravenous contrast limits the sensitivity of this exam for evaluation of solid visceral organs, vascular structures, and retroperitoneum. LOWER CHEST: No acute process identified.Mild cardiomegaly. UPPER GI: No significant abnormality. LIVER: Hepatic steatosis, but otherwise unremarkable. GALLBLADDER/BILE DUCTS: No biliary ductal dilatation.? PANCREAS: No mass, ductal dilation, or mohamud-pancreatic fluid. SPLEEN: Unremarkable. ADRENALS: No adrenal masses. KIDNEYS AND URETERS: No hydronephrosis.Limited evaluation for renal lesions in the absence of IV cont rast.No renal calculi.No ureteral calculi. Previously noted left UVJ stone no longer seen. ABDOMINAL AORTA AND OTHER VESSELS: Normal caliber aorta and IVC. PERITONEUM: No abnormal free fluid. No free air. LYMPH NODES: No pathologic lymphadenopathy. ABDOMINAL WALL: Unremarkable SMALL BOWEL/COLON: Small bowel has normal course and caliber. No colonic wall thickening or pericolon ic inflammatory changes.Normal appendix. Moderate stool in the ascending colon. URINARY BLADDER: Underdistended but grossly unremarkable. REPRODUCTIVE ORGANS: No pathologic process. MUSCULOSKELETAL: No acute or suspicious osseous abnormality. ADDITIONAL FINDINGS: None. IMPRESSION: No acute findings within the abdomen or pelvis. No urinary tract calculi. Previously noted left UVJ s tone no longer seen. Normal appendix.
[2025-06-17] MEDS ORDERED: KETOROLAC 30 MG/ML INJ ONE (18:06)
--- NOTE | 2025-06-17 18:37 | EDPHYS ---
Physician Documentation [facility] Name: Michelle Faulkner Age: 35 yrs Sex: Female : 1990 Arrival Date: 06/17/2025 Time: 15:21 Bed 16 Private MD: ED Physician Monisha Boyd HPI: 06/17 15:38 This 35 yrs old Female presents to ER via Ambulatory with complaints of Back dr5 Pain. 15:38 The patient presents with pain that is acute, with no known mechanism of injury. The dr5 symptoms are located in the low back. Onset: The symptoms/episode began/occurred 3 day(s) ago. Patient is a 35-year-old female with history of anxiety, Graves' disease, hypertension and thyroidectomy coming in with 3 days of lower back pain. Patient reports she went to [place] emergency room yesterday and had chest x-ray completed and found to have pneumonia. Patient is currently on azithromycin, Macrobid for urinary tract infection, clindamycin, levothyroxine. Patient reports that she was here last month with a kidney stone that she has previously passed.. Historical: - Allergies: 15:29 Celecoxib; jb4 15:29 Cipro; jb4 15:29 PENICILLINS; jb4 15:29 Prednisone; jb4 15:29 Sulfa (Sulfonamide Antibiotics); jb4 - Home Meds: 16:46 levothyroxine oral [Active]; db - PMHx: 15:29 Anxiety; graves disease; Hypertension; jb4 16:46 Hypothyroidism; db - PSHx: 15:29 hysterectomy; Tummy tuck; thyroidectomy (Tummy tuck); jb4 - Immunization history:: Adult Immunizations up to date. - Infectious Disease History:: Denies. - Social history:: Smoking status: Patient denies any tobacco usage or history of. ROS: 15:38 Constitutional: as per hpi dr5 Exam: 15:38 Constitutional: This is a well developed, well nourished patient who is awake, alert, dr5 and in no acute distress. Head/Face: Normocephalic, atraumatic. Eyes: Pupils equal round and reactive to light, extra-ocular motions intact. Lids and lashes normal. Conjunctiva and sclera are non-icteric and not injected. Cornea within normal limits. Periorbital areas with no swelling, redness, or edema. ENT: Nares patent. No nasal discharge, no septal abnormalities noted. Tympanic membranes are normal and external auditory canals are clear. Oropharynx with no redness, swelling, or masses, exudates, or evidence of obstruction, uvula midline. Mucous membranes moist. Chest/axilla: Normal chest wall appearance and motion. Nontender with no deformity. No lesions are appreciated. Cardiovascular: Regular rate and rhythm with a normal S1 and S2. Normal PMI, no JVD. No pulse deficits. Respiratory: Lungs have equal breath sounds bilaterally, clear to auscultation. No rales, rhonchi or wheezes noted. No increased work of breathing, no retractions or nasal flaring. Back: No spinal tenderness. No costovertebral tenderness. Full range of motion. Skin: Warm, dry with normal turgor. Normal color with no rashes, no lesions, and no evidence of cellulitis. MS/ Extremity: Pulses equal, no cyanosis. Neurovascular intact. Full, normal range of motion. 15:38 Abdomen/GI: Inspection: abdomen appears normal, Bowel sounds: normal, active, Palpation: abdomen is soft and non-tender, soft, nontender, 15:38 Back: pain, that is moderate, of the lumbar area, left low back and right low back, ROM is normal, normal spinal alignment noted, 18:41 Neuro: Exam negative for acute changes, dr5 Vital Signs: 15:28 BP 153 / 106; Pulse 105; Resp 16; Temp 98.2(O); Pulse Ox 99% on R/A; Weight 70.31 kg jb4 (R); Height 5 ft. 0 in. (R); 16:13 BP 143 / 107; Pulse 86; Resp 16; Pulse Ox 96% on R/A; db 17:30 BP 137 / 99; Pulse 71; Resp 16; Pulse Ox 97% on R/A; db 18:30 BP 137 / 95; Pulse 80; Resp 16; Pulse Ox 97% ; db 15:28 Body Mass Index 30.27 (70.31 kg, 152.4 cm) jb4 MDM: 15:28 Medical Screening Exam initiated dr5 17:48 Differential diagnosis: Fatigue sprain, vertebral fracture, Nephrolithiasis, acute dr5 kidney injury. Data reviewed: vital signs, nurses notes, lab test result(s), amylase and lipase, CBC, white blood cell count, hemoglobin, hematocrit, platelets, electrolytes, sodium, potassium, chloride, serum bicarbonate, BUN, creatinine, serum glucose, urinalysis, bacteruria, radiologic studies, CT scan, plain films. Data reviewed: diagnostic data from outside facility, radiologic studies, plain films, Patient has chest x-ray from yesterday from [place] showing infiltrate to right lower lobe.. Consideration of Admission/Observation Escalation of care including admission/observation considered. Escalation considered if patient found to have a kidney stone that was causing hydronephrosis or injury. I considered the following discharge prescriptions or medication management in the emergency department I discussed and recommended Over The Counter medications, Medications were administered in the Emergency Department. See MAR. Independent interpretation of the following test(s) in the Emergency Department X-Ray: My interpretation is Independent termination of x-ray does not reveal any infiltrates.. Historians other than the Patient: Spouse/Significant Other: Spouse. Care significantly affected by the following chronic conditions: Hypertension, hypothyroidism, anxiety. Care significantly affected by the following Social Determinants of Health: Poor access to healthcare and/or lack of insurance, Poor access to transportation, Problems related to employment. Counseling: I had a detailed discussion with the patient and/or guardian regarding the historical points, exam findings, and any diagnostic results supporting the discharge/admit diagnosis, the presence of at least one elevated blood pressure reading (>120/80) during this emergency department visit, lab results, radiology results, the need for outpatient follow up, for definitive care, a family practitioner. ED course: Patient has appointment with oncologist tomorrow for concerns of lymph node involvement and further treatment.. ED course: Patient is currently taking Macrobid for urinary tract infection as well as azithromycin for pneumonia. Elevated white blood cell count likely due to cancer possibly being in lymph nodes. CT scan of abdomen did not reveal any new abnormalities or kidney stones. Patient reports her back pain is better after pain medication. Will have patient continuing to take levothyroxine, azithromycin, and will change Macrobid to Keflex because patient reports this makes her feel sick. Will treat patient with pain medication and muscle lectures to help with low back pain. All questions answered. Strict ER precautions were given.. 06/17 15:36 Order name: CBC with Diff; Complete Time: 19:33 dr5 06/17 15:36 Order name: CMP; Complete Time: 17:01 dr5 06/17 15:36 Order name: Lipase; Complete Time: 17:01 [facility] 06/17 15:36 Order name: Test, Urine; Complete Time: 17:01 [facility] 06/17 15:36 Order name: UA Rfx Jayce Cult if indicated; Complete Time: 16:56 [facility] 06/17 16:50 Order name: Blood Culture Adult (2) dr5 06/17 16:50 Order name: Lactate w/ 2H reflex if indic.; Complete Time: 18:26 [facility] 06/17 19:27 Order name: Manual Differential; Complete Time: 19:33 EDMS 06/17 15:37 Order name: Stone Protocol CT; Complete Time: 17:11 [facility] 06/17 15:37 Order name: Chest Pa And Lat (2 Views) XRAY; Complete Time: 16:09 [facility] 06/17 15:36 Order name: IV Saline Lock; Complete Time: 16:18 [facility] 06/17 15:36 Order name: Labs collected and sent; Complete Time: 16:18 dr5 Administered Medications: 16:12 Drug: Ondansetron IVP 4 mg IVP once; over 2 minutes Route: IVP; Site: left antecubital; db 18:13 Follow up: Response: No adverse reaction db 16:12 Drug: NS 0.9% IV 1000 ml IV at 1 bolus Per protocol; to be given as a bolus over 60 db minutes Route: IV; Rate: 1 bolus; Site: left antecubital; 18:13 Follow up: Response: No adverse reaction; IV Status: Completed infusion; IV Intake: db 1000ml 16:12 Drug: morphine IVP or IV 4 mg IVP once over 4 mins Route: IVP; Infused Over: 4 mins; db Site: left antecubital; 17:00 Follow up: Response: No adverse reaction; Pain is decreased db 18:08 Drug: Ketorolac IVP 15 mg IVP once Route: IVP; Site: left antecubital; db 19:04 Follow up: Response: No adverse reaction; Pain is decreased tb4 18:08 Drug: morphine IVP or IV 4 mg IVP once over 4 mins Route: IVP; Infused Over: 4 mins; db Site: left antecubital; 19:04 Follow up: Response: No adverse reaction; Pain is decreased; RASS: Alert and Calm (0) tb4 Disposition Summary: 06/17/25 18:37 Discharge Ordered Notes: Location: Home dr5 Condition: Stable dr5 Diagnosis - Low back pain dr5 Followup: dr5 - With: Emergency Department - When: As needed - Reason: Worsening of condition Followup: dr5 - With: Private Physician - When: 1 - 2 days - Reason: Recheck today's complaints, Continuance of care, Re-evaluation by your physician Discharge Instructions: - Discharge Summary Sheet dr5 - Acute Back Pain, Adult dr5 Forms: - Work release form kmf - Medication Reconciliation Form dr5 - Antibiotic Education dr5 - Prescription Opioid Use dr5 - Patient Portal Instructions dr5 - Leadership Thank You Letter dr5 Prescriptions: - Cephalexin 500 mg Oral Capsule - take 1 capsule ORAL route every 12 hours for 10 days; 20 capsule; Refills: 0, dr5 Product Selection Permitted - Cyclobenzaprine 10 mg Oral Tablet - take 1 tablet ORAL route every 8 hours As needed; 30 tablet; Refills: 0, dr5 Product Selection Permitted - Tramadol 50 mg Oral Tablet - take 1 tablet ORAL route every 8 hours as needed; 12 tablet; Refills: 0, dr5 Product Selection Permitted Signatures: Dispatcher [employer] EDSin Ding, RN RN jb4 Carmella Walker, RN RN db Don Lowe, UNDERWRITING SUPPORT MANAGER-C UNDERWRITING SUPPORT MANAGER-Cdr5 Pia George RN tb4 Corrections: (The following items were deleted from the chart) 15:38 15:38 Chest Pa And Lat (2 Views)+[email or web address] ordered. EDOK EDMS
--- NOTE | 2025-06-17 18:37 | ER ---
Nurse's Notes [facility] Name: Michelle Faulkner Age: 35 yrs Sex: Female : 1990 Arrival Date: 06/17/2025 Time: 15:21 Bed 16 Private MD: Diagnosis: Low back pain Presentation: 06/17 15:28 Chief complaint: Patient states: I am having lower back pain that started yesterday. I jb4 was diagnosed with a UTI and was given medicince. The pain is just getting worse. Coronavirus screen: At this time, the client does not indicate any symptoms associated with coronavirus-19. Ebola Screen: No symptoms or risks identified at this time. Initial Sepsis Screen: Does the patient meet any 2 criteria? HR > 90 bpm. Yes Does the patient have a suspected source of infection? No. Patient's initial sepsis screen is negative. Risk Assessment: Do you want to hurt yourself or someone else? Patient reports no desire to harm self or others. Onset of symptoms was June 17, 2025. Transition of care: patient was not received from another setting of care. 15:28 Method Of Arrival: Ambulatory jb4 15:28 Acuity: ROGER 3 jb4 Historical: - Allergies: 15:29 Celecoxib; jb4 15:29 Cipro; jb4 15:29 PENICILLINS; jb4 15:29 Prednisone; jb4 15:29 Sulfa (Sulfonamide Antibiotics); jb4 - Home Meds: 16:46 levothyroxine oral [Active]; db - PMHx: 15:29 Anxiety; graves disease; Hypertension; jb4 16:46 Hypothyroidism; db - PSHx: 15:29 hysterectomy; Tummy tuck; thyroidectomy (Tummy tuck); jb4 - Immunization history:: Adult Immunizations up to date. - Infectious Disease History:: Denies. - Social history:: Smoking status: Patient denies any tobacco usage or history of. Screenin:10 [facility] [place] ED Fall Risk Assessment (Adult) History of falling in the last 3 months, db including since admission No falls in past 3 months (0 pts) Confusion or Disorientation No (0 pts) Intoxicated or Sedated No (0 pts) Impaired Gait No (0 pts) Mobility Assist Device Used No (0 pt) Altered Elimination No (0 pt) Score/Fall Risk Level 0 - 2 = Low Risk Oriented to surroundings, Maintained a safe environment. Abuse screen: Denies threats or abuse. Denies injuries from another. Nutritional screening: No deficits noted. Tuberculosis screening: No symptoms or risk factors identified. Assessment: 16:10 Reassessment: Patient appears in no apparent distress at this time. Patient and/or db family updated on plan of care and expected duration. Pain level reassessed. Patient is alert, oriented x 3, equal unlabored respirations, skin warm/dry/pink. General: Appears in no apparent distress. comfortable, Behavior is calm, cooperative. Pain: Complains of pain in right low back and left low back and lumbar area. Neuro: Level of Consciousness is awake, alert, obeys commands, Oriented to person, place, time, situation. Respiratory: Airway is patent Respiratory effort is even, unlabored, Respiratory pattern is regular, symmetrical. : Reports urgency. 16:48 Reassessment: Patient appears in no apparent distress at this time. Patient and/or db family updated on plan of care and expected duration. Pain level reassessed. Patient is alert, oriented x 3, equal unlabored respirations, skin warm/dry/pink. 16:48 Reassessment: Patient states feeling better. Patient states symptoms have improved. db 18:30 Reassessment: Patient appears in no apparent distress at this time. Patient and/or db family updated on plan of care and expected duration. Pain level reassessed. Patient is alert, oriented x 3, equal unlabored respirations, skin warm/dry/pink. Patient states feeling better. Vital Signs: 15:28 BP 153 / 106; Pulse 105; Resp 16; Temp 98.2(O); Pulse Ox 99% on R/A; Weight 70.31 kg 4 (R); Height 5 ft. 0 in. (R); 16:13 BP 143 / 107; Pulse 86; Resp 16; Pulse Ox 96% on R/A; db 17:30 BP 137 / 99; Pulse 71; Resp 16; Pulse Ox 97% on R/A; db 18:30 BP 137 / 95; Pulse 80; Resp 16; Pulse Ox 97% ; db 15:28 Body Mass Index 30.27 (70.31 kg, 152.4 cm) [facility] ED Course: 15:25 Patient arrived in ED. gl 15:28 Don Lowe FNP-C [facility]. dr5 15:28 Monisha Boyd MD is Attending Physician. dr5 15:29 Triage completed. jb4 15:29 Arm band placed on right wrist. jb4 15:55 Carmella Walker, ROSETTE is Primary Nurse. db 16:01 Chest Pa And Lat (2 Views) XRAY In Process Unspecified. EDMS 16:10 Initial lab(s) drawn, by me, sent to lab. Inserted saline lock: 20 gauge in left db antecubital area, using aseptic technique. Blood collected. Flushed with 10 mL NS. 16:[address] In Process Unspecified. EDMS 17:00 Patient has correct armband on for positive identification. Bed in low position. Call db light in reach. Side rails up X 1. Pulse ox on. NIBP on. Warm blanket given. Pillow given. 19:05 No provider procedures requiring assistance completed. IV discontinued, intact, tb4 bleeding controlled, No redness/swelling at site. Pressure dressing applied. 19:53 Provided Education on: Take medication as prescribed. tb4 Administered Medications: 16:12 Drug: Ondansetron IVP 4 mg IVP once; over 2 minutes Route: IVP; Site: left antecubital; db 18:13 Follow up: Response: No adverse reaction db 16:12 Drug: NS 0.9% IV 1000 ml IV at 1 bolus Per protocol; to be given as a bolus over 60 db minutes Route: IV; Rate: 1 bolus; Site: left antecubital; 18:13 Follow up: Response: No adverse reaction; IV Status: Completed infusion; IV Intake: db 1000ml 16:12 Drug: morphine IVP or IV 4 mg IVP once over 4 mins Route: IVP; Infused Over: 4 mins; db Site: left antecubital; 17:00 Follow up: Response: No adverse reaction; Pain is decreased db 18:08 Drug: Ketorolac IVP 15 mg IVP once Route: IVP; Site: left antecubital; db 19:04 Follow up: Response: No adverse reaction; Pain is decreased tb4 18:08 Drug: morphine IVP or IV 4 mg IVP once over 4 mins Route: IVP; Infused Over: 4 mins; db Site: left antecubital; 19:04 Follow up: Response: No adverse reaction; Pain is decreased; RASS: Alert and Calm (0) tb4 Medication: 16:10 VIS not applicable for this client. db Intake: 18:13 IV: 1000ml; Total: 1000ml. db Outcome: 18:37 Discharge ordered by . dr5 19:06 Discharged to home ambulatory, with family, tb4 19:06 Condition: stable 19:06 Discharge instructions given to patient, Instructed on discharge instructions, follow up and referral plans. Demonstrated understanding of instructions, follow-up care, medications, Prescriptions given X 3, 19:54 Patient left the ED. tb4 Signatures: Dispatcher [employer] EDMS Sin Erwin, RN RN jb4 Carmella Walker, RN RN db Don Lowe, FUNERAL WORKERS-C FUNERAL WORKERS-Cdr5 Jena Sun, Reg Reg Pia Bar, RN RN tb4
[2025-06-17 19:26] LABS: Differential Total Cells Count 100; Segmented Neutrophils 87 % (40-80)
[2025-06-17 19:27] LABS: Blood Morphology Comment NOT SEEN (NOT SEEN)
[2025-06-17 20:02] VITALS: TEMP 98.2
[2025-06-17 20:05] VITALS: O2SAT 97
[2025-06-17 20:07] VITALS: BP 137/95
== END 2025-06-17 19:54 | disposition home or self-care (01) ==
LOC: ER 15:21
DX: M54.50 Low back pain, unspecified (principal)
CPT/HCPCS: 96361; 87040 ×2; 85025; 36415; 81025; 83605; 81003; 83690; 80053; 76377; 74176; 71046; 96375; 96374; 99284; J2405; J7030

== ENCOUNTER 2025-06-19 17:26 | Emergency (ER) | payer BC ==
[2025-06-19] MEDS ORDERED: CALCIUM GLUCONATE 1 GM IVPB 2 GM/100 ML BAG IV ONE (18:45)
[2025-06-19 18:46] LABS: Absolute Lymphocytes (CBC) 3.5 K/uL (0.7-4.9); Hematocrit 41.3 % (36.0-45.0); Hemoglobin 14.3 g/dL (12.0-15.0); MCH 29.2 pg (27.0-35.0); MCHC 34.6 g/dL (32.0-36.0); MCV 84.3 fL (80-100); MPV 7.7 fL (7.6-11.3); Nucleated RBC Absolute Count 0.0 (0-0); Nucleated Red Blood Cells % 0.0 % (0-0); RBC Red Blood Cell Count 4.90 M/uL (3.86-4.86); White Blood Count 10.10 thou/uL (4.3-10.9)
[2025-06-19 19:09] LABS: ALT/SGPT 27.0 U/L (13-56); AST/SGOT 13.0 U/L (15-37); Albumin 3.8 g/dL (3.4-5.0); Albumin/Globulin Ratio 1.0 (1.1-1.8); Alkaline Phosphatase 112.0 U/L (45-117); Anion Gap 10.1 mEq/L (5.0-15.0); BUN Blood Urea Nitrogen 13.0 mg/dL (7-18); Globulin 3.8 g/dL (2.3-3.5); Glucose Level 104.0 mg/dL (74-106); Magnesium 2.1 mg/dL (1.6-2.4); Potassium 3.1 mEq/L (3.5-5.1)
--- NOTE | 2025-06-19 20:19 | ER ---
Nurse's Notes [facility] Name: Michelle Faulkner Age: 35 yrs Sex: Female : 1990 Arrival Date: 06/19/2025 Time: 17:26 Bed 19 Private MD: Diagnosis: Hypocalcemia Presentation: 06/19 17:35 Chief complaint: Sent by Dr. España for calcium 6.8. Coronavirus screen: At this time, hb the client does not indicate any symptoms associated with coronavirus-19. Ebola Screen: No symptoms or risks identified at this time. Initial Sepsis Screen: Does the patient meet any 2 criteria? No. Patient's initial sepsis screen is negative. Does the patient have a suspected source of infection? No. Patient's initial sepsis screen is negative. Risk Assessment: Do you want to hurt yourself or someone else? Patient reports no desire to harm self or others. Onset of symptoms was June 19, 2025. 17:35 Method Of Arrival: Ambulatory hb 17:36 Acuity: ROGER 3 hb VIROLOGIST: 18:56 LMP N/A - Hysterectomy, Not rg5 Historical: - Allergies: 17:35 Celecoxib; hb 17:35 Cipro; hb 17:35 PENICILLINS; hb 17:35 Prednisone; hb 17:35 Sulfa (Sulfonamide Antibiotics); hb - PMHx: 17:35 Anxiety; graves disease; Hypertension; Hypothyroidism; hb 17:37 Thyroid Cancer; hb - PSHx: 17:35 hysterectomy; Thyroidectomy (tu); Tummy tuck; hb - Immunization history:: Adult Immunizations unknown. - Infectious Disease History:: Denies. - Social history:: Smoking status: unknown. Screenin:15 [facility] ED Fall Risk Assessment (Adult) History of falling in the last 3 months, rg5 including since admission No falls in past 3 months (0 pts) Confusion or Disorientation No (0 pts) Intoxicated or Sedated No (0 pts) Impaired Gait No (0 pts) Mobility Assist Device Used No (0 pt) Altered Elimination No (0 pt) Score/Fall Risk Level 0 - 2 = Low Risk Oriented to surroundings, Maintained a safe environment, Hourly rounding (assess needs \T\ fall precautionary measures) done. Abuse screen: Denies threats or abuse. Nutritional screening: No deficits noted. Tuberculosis screening:. Assessment: 18:15 General: Appears in no apparent distress. comfortable, Behavior is calm, cooperative, rg5 appropriate for age. Pain: Denies pain. Neuro: Level of Consciousness is awake, alert, obeys commands, Oriented to person, place, time, situation, Reports headache numbness in mouth. Cardiovascular: Denies chest pain, Rhythm is sinus rhythm. Respiratory: Airway is patent Trachea midline Respiratory effort is even, unlabored, Respiratory pattern is regular, Breath sounds are clear. GI: Abdomen is flat, non-distended, Abd is soft and non tender. : No signs and/or symptoms were reported regarding the genitourinary system. EENT: No signs and/or symptoms were reported regarding the EENT system. Derm: Skin is intact, Skin is dry, Skin is normal, Reports tingling. Musculoskeletal: Circulation, motion, and sensation intact. Range of motion: intact in all extremities. 19:20 Reassessment: Patient and/or family updated on plan of care and expected duration. Pain rg5 level reassessed. Patient is alert, oriented x 3, equal unlabored respirations, skin warm/dry/pink. 20:15 Reassessment: Patient and/or family updated on plan of care and expected duration. Pain rg5 level reassessed. Patient is alert, oriented x 3, equal unlabored respirations, skin warm/dry/pink. Patient denies pain at this time. Patient states feeling better. Vital Signs: 17:36 BP 178 / 104; Pulse 84; Resp 16; Pulse Ox 100% on R/A; Weight 68.04 kg; Height 5 ft. 0 hb in. ; Pain 0/10; 18:35 BP 152 / 109; Pulse 85; Resp 18; Pulse Ox 99% ; rg5 19:30 BP 120 / 85; Pulse 75; Resp 18; Pulse Ox 98% ; rg5 20:14 BP 120 / 82; Pulse 76; Resp 17; Pulse Ox 100% ; rg5 17:36 Body Mass Index 29.30 (68.04 kg, 152.4 cm) hb 17:36 Pain Scale: Adult hb ED Course: 17:29 Patient arrived in ED. cj3 17:30 Don Lowe FNP-C [facility]. [facility]5 17:31 Dilia Tao MD is Attending Physician. dr5 17:35 Arm band placed on. hb 17:37 Triage completed. hb 18:15 Patient has correct armband on for positive identification. Bed in low position. Call rg5 light in reach. Side rails up X 1. Door closed. Noise minimized. Warm blanket given. 18:15 No provider procedures requiring assistance completed. Inserted saline lock: 20 gauge rg5 in right forearm, using aseptic technique. Blood collected. Flushed with 10 mL NS. Patient maintains SpO2 saturation greater than 95% on room air. 18:26 Jeffrey Olivares, RN is Primary Nurse. rg5 20:26 IV discontinued, bleeding controlled, No redness/swelling at site. Pressure dressing rg5 applied. Administered Medications: 18:40 Drug: Calcium Gluconate IVPB 2 grams IVPB once over 60 mins; (mix in NS 100 mL) Route: rg5 IVPB; Infused Over: 60 mins; Site: left antecubital; 20:15 Follow up: IV Status: Completed infusion; IV Intake: 100ml rg5 Medication: 18:15 VIS not applicable for this client. rg5 Intake: 20:15 IV: 100ml; Total: 100ml. rg5 Outcome: 20:19 Discharge ordered by . dr5 20:26 Discharged to home ambulatory, rg5 20:26 Condition: stable 20:26 Discharge instructions given to patient, Instructed on discharge instructions, Demonstrated understanding of instructions, 20:27 Patient left the ED. rg5 Signatures: Starla Suarez, RN RN Jeffrey Olivares, RN RN rg5 Don Lowe, ASSISTED LIVING DIRECTOR-C ASSISTED LIVING DIRECTOR-Cdr5 Rosio Angel cj3 Corrections: (The following items were deleted from the chart) 17:40 17:36 Resp 16bpm; Pulse Ox 100% RA; 68.04 kg; Height 5 ft. 0 in.; BMI: 29.2; Pain 0/10, hb Adult; hb
--- NOTE | 2025-06-19 20:19 | EDPHYS ---
Physician Documentation [facility] Name: Michelle Faulkner Age: 35 yrs Sex: Female : 1990 Arrival Date: 06/19/2025 Time: 17:26 Bed 19 Private MD: ED Physician Dilia Tao HPI: 06/19 23:02 This 35 yrs old Female presents to ER via Ambulatory with complaints of dr5 Abnormal Lab Results. 23:02 Onset: The symptoms/episode began/occurred 2 day(s) ago. Patient is a 35-year-old dr5 female with history of anxiety, Graves' disease, hypertension, hypothyroidism, thyroid cancer coming in for 6.8 calcium that was drawn this morning. Patient reports that she has been hesitant on taking her calcium as it has been causing kidney cyst in the past. Patient reports she went to her oncologist yesterday and had lab work completed today. Patient states that she has an endocrinology appointment coming up next week. Patient reports numbness and tingling around her mouth as well as muscle twitching in her bilateral arms.. 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 - Infectious Disease History:: Denies. - Social history:: Smoking status: unknown. ROS: 23:02 Constitutional: as per hpi dr5 Exam: 23:02 Constitutional: This is a well developed, well nourished patient who is awake, alert, dr5 and in no acute distress. Head/Face: Normocephalic, atraumatic. Eyes: Pupils equal round and reactive to light, extra-ocular motions intact. Lids and lashes normal. Conjunctiva and sclera are non-icteric and not injected. Cornea within normal limits. Periorbital areas with no swelling, redness, or edema. Neck: Trachea midline, no thyromegaly or masses palpated, and no cervical lymphadenopathy. Supple, full range of motion without nuchal rigidity, or vertebral point tenderness. No Meningismus. Chest/axilla: Normal chest wall appearance and motion. Nontender with no deformity. No lesions are appreciated. Cardiovascular: Regular rate and rhythm with a normal S1 and S2. Normal PMI, no JVD. No pulse deficits. Respiratory: Lungs have equal breath sounds bilaterally, clear to auscultation. No rales, rhonchi or wheezes noted. No increased work of breathing, no retractions or nasal flaring. Back: No spinal tenderness. No costovertebral tenderness. Full range of motion. Skin: Warm, dry with normal turgor. Normal color with no rashes, no lesions, and no evidence of cellulitis. MS/ Extremity: Pulses equal, no cyanosis. Neurovascular intact. Full, normal range of motion. Neuro: Awake and alert, GCS 15, oriented to person, place, time, and situation. Cranial nerves II-XII grossly intact. Motor strength 5/5 in all extremities. Sensory grossly intact. Cerebellar exam normal. Normal gait. Vital Signs: 17:36 BP 178 / 104; Pulse 84; Resp 16; Pulse Ox 100% on R/A; Weight 68.04 kg; Height 5 ft. 0 hb in. ; Pain 0/10; 18:35 BP 152 / 109; Pulse 85; Resp 18; Pulse Ox 99% ; rg5 19:30 BP 120 / 85; Pulse 75; Resp 18; Pulse Ox 98% ; rg5 20:14 BP 120 / 82; Pulse 76; Resp 17; Pulse Ox 100% ; rg5 17:36 Body Mass Index 29.30 (68.04 kg, 152.4 cm) hb 17:36 Pain Scale: Adult hb MDM: 17:31 Medical Screening Exam initiated dr5 23:02 Differential diagnosis: viral Infection, bacterial infection, Hypocalcemia secondary to dr5 thyroid cancer, electrolyte abnormality, acute kidney injury. Data reviewed: vital signs, nurses notes, lab test result(s), CBC, white blood cell count, hemoglobin, hematocrit, platelets, electrolytes, sodium, potassium, chloride, serum bicarbonate, BUN, creatinine, serum glucose, Magnesium level. Data reviewed: I have discussed the patient's presentation/case with the attending Emergency Department Physician;. Consideration of Admission/Observation Escalation of care including admission/observation considered. Admission consider if patient had severe symptoms. I considered the following discharge prescriptions or medication management in the emergency department I discussed and recommended Over The Counter medications, Medications were administered in the Emergency Department. See MAR. Historians other than the Patient: Spouse/Significant Other: . Care significantly affected by the following chronic conditions: Hypertension, Anxiety, Graves' disease, thyroid cancer. Care significantly affected by the following Social Determinants of Health: Poor access to healthcare and/or lack of insurance, Poor access to transportation, Problems related to employment. 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 Medication response: Calcium. Response to treatment: the patient's symptoms have resolved after treatment, the patient's condition has returned to base line, the patient is now symptom free. Special discussion: I discussed with the patient/guardian in detail that at this point there is no indication for admission to the hospital. It is understood, however, that if the symptoms persist or worsen the patient needs to return immediately for re-evaluation. Based on the history and exam findings, there is no indication for further emergent testing or inpatient evaluation. Oncologist, patient portal representative, primary care doctor. ED course: Patient reports that she is feeling much better. Recommended patient start taking calcium twice daily 1000 mg as previously. Recommended patient also increase hydration. Recommended patient follow-up with endocrinology and call office to see if she can get her appointment moved closer. Patient is agreeable plan. All questions answered. Strict ER precautions were given. Patient's calcium level was 7.3 prior to giving calcium gluconate.. 06/19 17:42 Order name: CBC with Diff; Complete Time: 18:58 dr5 06/19 17:42 Order name: CMP; Complete Time: 19:16 dr5 06/19 17:42 Order name: Magnesium; Complete Time: 19:16 dr5 Administered Medications: 18:40 Drug: Calcium Gluconate IVPB 2 grams IVPB once over 60 mins; (mix in NS 100 mL) Route: rg5 IVPB; Infused Over: 60 mins; Site: left antecubital; 20:15 Follow up: IV Status: Completed infusion; IV Intake: 100ml rg5 Disposition Summary: 06/19/25 20:19 Discharge Ordered Notes: Location: Home dr5 Condition: Stable dr5 Diagnosis - Hypocalcemia dr5 Followup: dr5 - With: Emergency Department - When: As needed - Reason: Worsening of condition Followup: dr5 - With: Private Physician - When: 1 - 2 days - Reason: Recheck today's complaints, Continuance of care, Re-evaluation by your physician Discharge Instructions: - Discharge Summary Sheet dr5 - Hypocalcemia, Adult dr5 Forms: - Medication Reconciliation Form dr5 - Patient Portal Instructions dr5 - Leadership Thank You Letter dr5 Signatures: Dispatcher [employer] Starla Epps RN RN Jeffrey Olivares RN RN rg5 Don Lowe, RESEARCH SPECIALIST-C RESEARCH SPECIALIST-Cdr5
[2025-06-19 21:24] VITALS: BP 120/82; O2SAT 100
== END 2025-06-19 20:27 | disposition home or self-care (01) ==
LOC: ER 17:26
DX: E83.51 Hypocalcemia (principal)
CPT/HCPCS: 96365; 85025; 36415; 83735; 80053; 99284; 96366; J0612

== ENCOUNTER 2025-07-25 16:17 | Emergency (ER) | payer BC ==
--- OUTSIDE RECORDS SUMMARY | 2025-07-25 16:20 | XMS REPORT | Continuity of Care Document ---
Author Name Unknown Address [address] [facility] [place] [address] Organization [facility] [place] Address [address] [facility] [place] [address] Care Team Providers Care Software Quality Engineer Name Role Phone Flavio Ennis Jr. Primary Care Physician [phone] Erika Broussard MD Attending Clinician [phone] Jon Márquez MD Attending Clinician [phone] JON MÁRQUEZ Attending Clinician Unavailable CRISTINO NEWSOME Attending Clinician UnavailCRISTINO Beverly Attending Clinician JON Shankar Admitting Clinician Unavailable Payers Payer Name Policy Type Policy Number Effective Date Expirati on Date Source Allergies, Adverse Reactions, Alerts Allergy Name Allergy Type Status Severity Reaction(s) Onset Date Inactive Date Treating Clinician Comments Source Sulfamet hoxazole -Trimeth oprim Propensi ty to adverse reaction s Active Other - See comments 03-21 00:00: 00 [facility] ity [facility] in Propensi ty to adverse reaction s Active Other - See comments 03-21 00:00: 00 [facility] PREDNISO NE DRUG INGREDI Active Other-Cmnt 03-30 00:00: 00 [facility] Predniso ne Propensi ty to adverse reaction s Active Other - See comments 03-30 00:00: 00 kidney infection s [facility] Ciproflo xacin (Bulk) Propensi ty to adverse reaction s Active Rash 2015-11 00:00: 00 [facility] Sulfa (Sulfona mide Antibiot ics) Propensi ty to adverse reaction s Active Rash 2015-11 00:00: 00 [facility] CIPROFLO XACIN (BULK) DRUG Active Rash 2015-11 00:00: 00 [facility] SULFA (SULFONA MIDE ANTIBIOT ICS) Drug Class Active Rash 2015-11 00:00: 00 [facility] Social History Social Habit Start Date Stop Date Quantity Comments Source [facility] Tobacco use and exposure 2025-03-21 00:00:00 2025-03-21 00:00:00 Smokeless tobacco non-user [facility] Alcoholic beverage intake 2025-03-21 00:00:00 2025-03-21 00:00:00 Current drinker of alcohol (finding) [facility] History of Social function 2025-03-21 00:00:00 2025-03-21 00:00:00 [facility] Alcohol Comment 2025-03-21 00:00:00 2025-03-21 00:00:00 Socially [facility] Sex assigned at 1990 00:00:00 1990 00:00:00 [facility] Smoking Status Start Date Stop Date Source Tobacco smoking consumption unknown [facility] Never smoked tobacco [facility] Medications Ordered Medication Name Filled Medication Name Start Date Stop Date Current Medication? Ordering Clinician Indication Dosage Frequency Signature (SIG) Comments Components Source metoprolol tartrate 25 mg tablet 03-21 14:24: 31 Yes 25mg Take 1 tablet by mouth in the morning and 1 tablet in the evening. [facility] SEMAGLUTIDE SC 14 14:24: 31 Yes 5mg inject 5 mg under the skin weekly. [facility] iopamidol (ISOVUE 370-500 mL) injection 80 mL 2022-11 22:15: 00 09-22 22:15 :00 No [id number] 80mL 80 mL, Intravenou s, ONCE, 1 dose, On Wed09/22/23 at 1615, Routine [facility] NaCl 0.9% (NS) injection 5 mL 2022-11 21:10: 31 Yes 5mL 5 mL, Slow IV Push, PRN - SEE INSTRUCTIO NS, Starting on Wed09/22/23 at 1510, Until Discontinu ed, 10 mL [facility] lisinopril 20 mg tablet 2022-11 19:00: 46 09-22 00:00 :00 No 20mg Take 20 mg by mouth daily. [facility] diazePAM (VALIUM) 2 mg tablet 2022-11 19:00: 46 09-22 00:00 :00 No 2mg Take 2 mg by mouth 3 (three) times daily. [facility] methIMAzole 5 mg tablet 2022-11 00:00: 00 Yes [id number] 5mg Take 1 tablet by mouth in the morning. [facility] atenoloL 25 mg tablet 2022-11 00:00: 00 03-21 00:00 :00 No [id number] 25mg Take 1 tablet by mouth in the morning. [facility] gabapentin (NEURONTIN) 100 mg capsule 08-01 00:00: 00 09-22 00:00 :00 No 100mg Take 1 capsule by mouth 3 (three) times daily. [facility] traMADOL (ULTRAM) 50 mg tablet 08-01 00:00: 00 09-22 00:00 :00 No 50mg Take 1 tablet by mouth every 6 (six) hours as needed for Pain (scale 4-6). [facility] ondansetron (ZOFRAN) 4 mg tablet 05-06 00:00: 00 03-21 00:00 :00 No 4mg Take 1 tablet by mouth every 8 (eight) hours as needed for Nausea and Vomiting (N/V). [facility] traMADOL (ULTRAM) 50 mg tablet 04-26 00:00: 00 09-22 00:00 :00 No 50mg Take 1 tablet by mouth every 6 (six) hours as needed for Pain (scale 7-10). [facility] ketorolac (TORADOL) 10 mg tablet 2015-11 00:00: 00 09-22 00:00 :00 No 10mg Take 1 tablet by mouth every 6 (six) hours as needed for Pain (scale 7-10). [facility] Vital Signs Vital Name Observation Time Observation Value Comments S ource Systolic blood pressure 2025-03-21 19:20:00 128 mm[Hg] [facility] Diastolic blood pressure 2025-03-21 19:20:00 83 mm[Hg] [facility] Heart rate 2025-03-21 19:20:00 80 /min [facility] Body height 2025-03-21 19:20:00 149.9 cm [facility] Body weight 2025-03-21 19:20:00 65.318 kg [facility] BMI 2025-03-21 19:20:00 29.08 kg/m2 [facility] Oxygen saturation in Arterial blood by Pulse oximetry 2025-03-21 19:20:00 99 /min [facility] Systolic blood pressure 2023-09-23 01:00:00 140 mm[Hg] [facility] Diastolic blood pressure 2023-09-23 01:00:00 100 mm[Hg] [facility] Heart rate 2023-09-23 01:00:00 94 /min [facility] Body temperature 2023-09-23 01:00:00 36.94 Yoselin [facility] Respiratory rate 2023-09-23 01:00:00 18 /min [facility] Oxygen saturation in Arterial blood by Pulse oximetry 2023-09-23 01:00:00 100 /min [place] [facility] Body height 2023-09-22 20:59:00 149.9 cm [facility] Body weight 2023-09-22 20:59:00 65.318 kg [facility] BMI 2023-09-22 20:59:00 29.08 kg/m2 [facility] Procedures Procedure Date / Time Performed Performing Clinician Source URINALYSIS 2023-09-22 22:58:00 Jon Márquez [facility] POCT GLUCOSE(AGE >30DAYS) 2023-09-22 21:42:00 Jon Márquez [facility] POCT GLUCOSE (AUTOMATED) 2023-09-22 21:40:00 Jon Márquez [facility] TROPONIN I 2023-09-22 21:36:00 Jon Márquez [facility] FREE T4 2023-09-22 21:36:00 Jno Márquez [facility] THYROID STIMULATING HORMONE 2023-09-22 21:36:00 Jon Márquez [facility] BASIC METABOLIC PANEL (NA, K, CL, CO2, GLUCOSE, BUN, CREATININE, CA) 2023-09-22 21:36:00 Jon Márquez [facility] CBC WITHOUT DIFF 2023-09-22 21:36:00 Jon Márquez [facility] PROTHROMBIN TIME / INR 2023-09-22 21:36:00 Neptali Máruqez [facility] ACTIVATED PARTIAL THRMPLAS SHAR 2023-09-22 21:36:00 Jon Márquez [facility] CT STROKE ANGIOGRAM HEAD 2023-09-22 21:33:00 Jon Márquez [facility] CT STROKE ANGIOGRAM NECK 2023-09-22 21:33:00 Jon Márquze [facility] CT STROKE HEAD WO CONTRAST 2023-09-22 21:22:00 Jon Márquez [facility] NOTICE OF PRIVACY PRACTICES 2023-09-22 20:53:59 Doctor Unassigned, [place] [facility] CONSENT/REFUSAL FOR DIAGNOSIS AND TREATMENT 2023-09-22 20:53:04 Doctor Unassigned, [place] [facility] Encounters Start Date/Time End Date/Time Encounter Type Admission Type Attending Clinicians Care Facility Care Department Encounter ID Source 2025-03-23 00:00:00 2025-04-28 18:28:03 Patient Secure Msg AdErika jiménez [facility] [id number] [facility] 2025-03-21 14:00:00 2025-03-21 15:18:38 Office Visit Erika Broussard [facility] [id number] [facility] 2023-09-22 15:11:00 2023-09-22 19:14:00 Emergency Jon Márquez [facility] [id number] [facility] 2023-09-22 15:11:00 2023-09-22 19:14:00 Emergency X JON MÁRQUEZ [facility] ERT [id number] [facility] 2017-04-26 16:36:29 2017-04-26 20:29:00 Emergency X CRISTINO NEWSOME [facility] ERT [id number] [facility] Results Test Description Test Time Test Comments Results Result Co mments Source [facility] [id number] 22:10:39* Test Item Value Reference Range Interpretation Comme nts FREE T4 (test code = 6192282627) 3.59 See_Comment H [Automated messa ge] The system which generated this result transmitted reference range: 0.78 - 2.20 ng/dL:. The reference range was not used to interpret this result as normal/abnormal. Lab Interpretation (test code = 92750-2) Abnormal [facility] - Code [id number] 22:05:39* Test Item Value Reference Range Interpretation Comme [facility] TROPONIN I (test code = 5912038843) 0.025 ng/mL <=0.034 JOSE (test code = [...] of biotin. Lab Interpretation (test code = 08497-9) Normal [facility] - Code [id number] 21:57:39* Test Item Value Reference Range Interpretation Comme [facility] APTT Patient (test code = 3173-2) 26 See_Comment [Automated message] The system which generated this result transmitted reference range: 23 - 38 Seconds. The reference range was not used to interpret this result as normal/abnormal. JOSE (test code = JOSE) The [facility] patient population mean normal value for aPTT is 30 seconds. Lab Interpretation (test code = 93006-8) Normal [facility] Time / INR - Code [id number] 21:55:41* Test Item Value Reference Range Interpretation [...] the indications. Lab Interpretation (test code = 82297-8) Normal [facility] Met[facility] (NA, K, CL, CO2, Glucose, BUN, Creatinine, CA) - Code [id number] 21:53:19* Test Item Value Reference Range Interpretation Comme nts NA (test code = 4326605927) 140 mmol/L 135-145 K (test code = 5047337249) 4.4 mmol/L 3.5-5.0 CL (test code = 1318532695) 103 mmol/L 98-108 CO2 TOTAL (test code = 2342529186) 22 mmol/L 23-31 L AGAP (test code = 9497116065) 15 2-16 BUN (test code = 3738554313) 8 mg/dL 7-23 GLUCOSE (test code = 4861754148) 112 mg/dL 70-110 H CREATININE (test code = 8071665684) 0.42 mg/dL 0.50-1.04 L CALCIUM (test code = 8615108821) 10.0 mg/dL 8.6-10.6 eGFR (test code = 34384-5) 132.6 mL/min/1.73m2 CKD-EPI eGFR (2020). Assuming creatinine has been stable day-to-day for at least three months, the eGFR indicates Category G1 (>= 90 mL/min/1.73 m2) Lab Interpretation (test code = 86638-2) Abnormal [facility] without Diff - Code [id number] 21:44:19* Test Item Value Reference Range Interpretation [...] result as normal/abnormal. MPV (test code = 38490-6) 10.4 fL 9.5-12.9 RDW-CV (test code = 788-0) 11.5 % 12.0-15.5 L RDW-SD (test code = 62023-0) 34.4 fL 39.0-49.9 L NRBC x10^3 (test code = 4156291099) See_Comment [Automated [employer] ge] The system which generated this result transmitted reference range: 10*3/?L. The reference range was not used to interpret this result as normal/abnormal. NRBC/100 WBC (test code = 9110709854) 0.0 See_Comment [Automated [employer] ge] The system which generated this result transmitted reference range: 0.0 - 10.0 /100 WBCs. The reference range was not used to interpret this result as normal/abnormal. IPF % (test code = 4293084772) Lab Interpretation (test code = 01099-0) Abnormal [facility] GLUCOSE (AUTOMATED)2023-09-22 21:42:27* Test Item Value Reference Range Interpretation Comme nts POCT GLU (test code = 8519704782) 126 mg/dL 70-110 H Notified Provide r Lab Interpretation (test code = 18882-3) Abnormal [facility] Glucose (Age >30 Days) - Code Stroke 2023-09-22 21:42:00* Test Item Value Reference Range Interpretation Comme nts POCT Glu (age>30days) (test code = 3342) 126 mg/dL 70-110 A Lab Interpretation (test cod e = 66411-2) Abnormal [facility]
[2025-07-25 17:02] LABS: Absolute Lymphocytes (CBC) 3.8 K/uL (0.7-4.9); Hematocrit 41.5 % (36.0-45.0); Hemoglobin 14.3 g/dL (12.0-15.0); MCH 29.4 pg (27.0-35.0); MCHC 34.5 g/dL (32.0-36.0); MCV 85.1 fL (80-100); MPV 7.1 fL (7.6-11.3); Nucleated RBC Absolute Count 0.0 (0-0); Nucleated Red Blood Cells % 0.1 % (0-0); RBC Red Blood Cell Count 4.87 M/uL (3.86-4.86); White Blood Count 10.90 thou/uL (4.3-10.9)
[2025-07-25] MEDS ORDERED: KETOROLAC 30 MG/ML INJ ONE (17:10)
[2025-07-25 17:33] LABS: ALT/SGPT 33.0 U/L (13-56); AST/SGOT 14.0 U/L (15-37); Albumin 3.7 g/dL (3.4-5.0); Albumin/Globulin Ratio 0.9 (1.1-1.8); Alkaline Phosphatase 91.0 U/L (45-117); Anion Gap 7.8 mEq/L (5.0-15.0); BUN Blood Urea Nitrogen 13.0 mg/dL (7-18); Bilirubin Indirect, Calculated 1.3 mg/dL (0.2-0.8); Globulin 3.9 g/dL (2.3-3.5); Glucose Level 109.0 mg/dL (74-106); Magnesium 2.2 mg/dL (1.6-2.4); Potassium 3.8 mEq/L (3.5-5.1); T4,Total 12.5 ug/dL (4.8-13.9); Thyroid Stimulating Hormone 3.57 uIU/mL (0.358-3.740); Troponin High Sensitivity 5.0 pg/mL (<58.9)
[2025-07-25] MEDS ORDERED: CALCIUM GLUCONATE 1 GM IVPB 1 GM/50 ML BAG IV ONE (17:49)
--- NOTE | 2025-07-25 18:04 | EDPHYS ---
Physician Documentation [facility] Name: Michelle Faulkner Age: 35 yrs Sex: Female : 1990 Arrival Date: 07/25/2025 Time: 16:17 Bed 13 Private MD: ED Physician Dilia Tao HPI: 07/25 16:47 This 35 yrs old Female presents to ER via Ambulatory with complaints of Muscle sp3 Cramps, Nausea. 16:47 35-year-old female with history of Graves' disease, hypertension, thyroid cancer who sp3 had partial thyroidectomy on May 08 and who is now on subsequent thyroid replacement and calcium medications, who recently found a new thyroid cancer on imaging presents to the ED for chief complaint perioral paresthesia, shaking and general feelings of low calcium as per her prior episodes of low calcium. She presents for evaluation of the symptoms and possible intervention if her calcium levels are off. She denies any other symptoms including fever, headache, neck pain, chest pain, shortness of breath, abdominal pain, vomiting, diarrhea, or any other signs or symptoms on ROS at this time.. 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 - Infectious Disease History:: Denies. - Social history:: Smoking status: Patient denies any tobacco usage or history of. ROS: 16:49 Constitutional: Negative for fever, chills, and weight loss, Eyes: Negative for injury, sp3 pain, redness, and discharge, ENT: Negative for injury, pain, and discharge, Cardiovascular: Negative for chest pain, palpitations, and edema, Respiratory: Negative for shortness of breath, cough, wheezing, and pleuritic chest pain, Abdomen/GI: Negative for abdominal pain, nausea, vomiting, diarrhea, and constipation, Back: Negative for injury and pain, MS/Extremity: Negative for injury and deformity, Skin: Negative for injury, rash, and discoloration, Psych: Negative for depression, anxiety, suicide ideation, homicidal ideation, and hallucinations, Allergy/Immunology: Negative for hives, rash, and allergies, Endocrine: Negative for neck swelling, polydipsia, polyuria, polyphagia, and marked weight changes, Hematologic/Lymphatic: Negative for swollen nodes, abnormal bleeding, and unusual bruising, 16:49 All other systems are negative, Exam: 16:49 Constitutional: This is a well developed, well nourished patient who is awake, alert, sp3 and in no acute distress. Head/Face: Normocephalic, atraumatic. Eyes: Pupils equal round and reactive to light, extra-ocular motions intact. Lids and lashes normal. Conjunctiva and sclera are non-icteric and not injected. Cornea within normal limits. Periorbital areas with no swelling, redness, or edema. ENT: Nares patent. No nasal discharge, no septal abnormalities noted. External auditory canals are clear. Oropharynx with no redness, swelling, or masses, exudates, or evidence of obstruction, uvula midline. Mucous membranes moist. Chest/axilla: Normal chest wall appearance and motion. Nontender with no deformity. No lesions are appreciated. Cardiovascular: Regular rate and rhythm with a normal S1 and S2. No gallops, murmurs, or rubs. Normal PMI, no JVD. No pulse deficits. Respiratory: Lungs have equal breath sounds bilaterally, clear to auscultation and percussion. No rales, rhonchi or wheezes noted. No increased work of breathing, no retractions or nasal flaring. Abdomen/GI: Soft, non-tender, with normal bowel sounds. No distension or tympany. No guarding or rebound. No evidence of tenderness throughout. Back: No spinal tenderness. No costovertebral tenderness. Full range of motion. Skin: Warm, dry with normal turgor. Normal color with no rashes, no lesions, and no evidence of cellulitis. MS/ Extremity: Pulses equal, no cyanosis. Neurovascular intact. Full, normal range of motion. Neuro: Awake and alert, GCS 15, oriented to person, place, time, and situation. Cranial nerves II-XII grossly intact. Motor strength 5/5 in all extremities. Sensory grossly intact. Cerebellar exam normal. Normal gait. Psych: Awake, alert, with orientation to person, place and time. Behavior, mood, and affect are within normal limits. 18:02 ECG was reviewed by the Attending Physician. EKG demonstrates normal sinus rhythm at 74 sp3 bpm with normal intervals, normal QRS, normal axis and normal ST/T-segment's without evidence of acute ischemia. Vital Signs: 16:27 BP 147 / 103; Pulse 92; Resp 18; Temp 97.8; Pulse Ox 100% on R/A; Pain 1/10; hb 17:00 BP 122 / 88; Pulse 78; Resp 12; Pulse Ox 99% ; me1 18:00 BP 120 / 89; Pulse 75; Resp 16; Temp 98.5; Pulse Ox 98% ; me1 16:27 Pain Scale: Adult hb MDM: 16:25 Medical Screening Exam initiated sp3 16:50 Data reviewed: vital signs, nurses notes, old medical records, lab test result(s), EKG. sp3 ED course: 35-year-old female with perioral paresthesia, generalized weakness and shaking consistent with hypocalcemia. Differential diagnosis includes hypocalcemia, anxiety, other electrolyte disturbance, thyroid storm, among others. Workup will include general labs including thyroid studies, TSH, calcium, EKG and general supportive care. Disposition pending workup and patient course. Patient slightly hypertensive otherwise normal vital signs.. 18:02 ED course: Calcium is 7.4 with normal magnesium. We will administer 1 dose of calcium sp3 gluconate and 100 mL of diluent. Vital signs otherwise stable. Thyroid values also obtained. 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 07/25 16:42 Order name: Basic Metabolic Panel; Complete Time: 17:37 sp3 07/25 16:42 Order name: CBC with Diff; Complete Time: 17:37 sp3 07/25 16:42 Order name: LFT's; Complete Time: 17:37 sp3 07/25 16:42 Order name: Magnesium; Complete Time: 17:37 sp3 07/25 16:42 Order name: Troponin HS; Complete Time: 17:37 sp3 07/25 16:42 Order name: Thyroid Stimulat Hormone; Complete Time: 17:37 sp3 07/25 16:42 Order name: T4,Total; Complete Time: 17:37 sp3 07/25 16:42 Order name: T4 Free; Complete Time: 17:37 sp3 07/25 16:42 Order name: T3 Free; Complete Time: 17:37 sp3 07/25 16:42 Order name: Cardiac monitoring; Complete Time: 17:19 sp3 07/25 16:42 Order name: EKG - Nurse/Tech; Complete Time: 17:19 sp3 07/25 16:42 Order name: IV Saline Lock; Complete Time: 17:08 sp3 07/25 16:42 Order name: Labs collected and sent; Complete Time: 17:08 sp3 07/25 16:42 Order name: O2 Sat Monitoring; Complete Time: 16:47 sp3 Administered Medications: 17:20 Drug: Ketorolac IVP 15 mg IVP once Route: IVP; Site: right antecubital; me1 17:46 Follow up: Response: No adverse reaction; Pain is decreased me1 17:52 Drug: Calcium Gluconate IVPB 1 grams IVPB once over 60 mins; (mix in NS 100 mL) Route: me1 IVPB; Infused Over: 60 mins; Site: right antecubital; 18:48 Follow up: Response: No adverse reaction; IV Status: Completed infusion me1 Disposition Summary: 07/25/25 18:03 Discharge Ordered Notes: Location: Home sp3 Condition: Stable sp3 Diagnosis - Hypocalcemia, dehydration, muscle cramps sp3 Followup: sp3 - With: Private Physician - When: Upon discharge from the Emergency Department - Reason: Continuance of care Discharge Instructions: - Discharge Summary Sheet sp3 - Hypocalcemia, Adult sp3 Forms: - Medication Reconciliation Form sp3 - Antibiotic Education sp3 - Prescription Opioid Use sp3 - Patient Portal Instructions sp3 - Leadership Thank You Letter sp3 Signatures: Dispatcher [employer] EDMS Starla Suarez RN RN Dilia Tao MD MD sp3 Gladys Thacker RN RN me1 Corrections: (The following items were deleted from the chart) 16:43 16:43 BASIC METABOLIC PANEL+C.LAB.BRZ ordered. EDMS EDMS 16:43 16:43 CBC+H.LAB.BRZ ordered. EDMS EDMS 16:43 16:43 HEPATIC FUNCTION+C.LAB.BRZ ordered. EDMS EDMS 16:43 16:43 MAGNESIUM+C.LAB.BRZ ordered. EDMS EDMS 16:43 16:43 Troponin High Sensitivity+C.LAB.BRZ ordered. EDMS EDMS 16:43 16:43 CALCIUM+C.LAB.BRZ ordered. EDMS EDMS 16:43 16:43 THYROID STIMULAT HORMONE+C.LAB.BRZ ordered. EDMS EDMS 16:43 16:43 T4,TOTAL+C.LAB.BRZ ordered. EDMS EDMS 16:43 16:43 T4 FREE+C.LAB.BRZ ordered. EDMS EDMS 16:43 16:43 T3 FREE+C.LAB.BRZ ordered. EDMS EDMS
--- NOTE | 2025-07-25 18:04 | ER ---
Nurse's Notes [facility] Name: Michelle Faulkner Age: 35 yrs Sex: Female : 1990 Arrival Date: 07/25/2025 Time: 16:17 Bed 13 Private MD: Diagnosis: Hypocalcemia, dehydration, muscle cramps Presentation: 07/25 16:27 Chief complaint: "I think I have low calcium again, my lips and left eye are twitching, hb my muscles are cramping, and I feel terrible, it started after my CT with contrast yesterday." Being treated for thyroid cancer, had thyroidectomy 05/08. Coronavirus screen: At this time, the client does not indicate any symptoms associated with coronavirus-19. Ebola Screen: No symptoms or risks identified at this time. Initial Sepsis Screen: Does the patient meet any 2 criteria? No. Patient's initial sepsis screen is negative. Does the patient have a suspected source of infection? No. Patient's initial sepsis screen is negative. Risk Assessment: Do you want to hurt yourself or someone else? Patient reports no desire to harm self or others. Onset of symptoms was July 24, 2025. 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 - Infectious Disease History:: Denies. - Social history:: Smoking status: Patient denies any tobacco usage or history of. Screenin:40 [facility] ED Fall Risk Assessment (Adult) History of falling in the last 3 months, me1 including since admission No falls in past 3 months (0 pts) Confusion or Disorientation No (0 pts) Intoxicated or Sedated No (0 pts) Impaired Gait No (0 pts) Mobility Assist Device Used No (0 pt) Altered Elimination No (0 pt) Score/Fall Risk Level 0 - 2 = Low Risk Maintained a safe environment, Provided non-skid footwear, Hourly rounding (assess needs \\T\\ fall precautionary measures) done. Abuse screen: Denies threats or abuse. Nutritional screening: No deficits noted. Tuberculosis screening: No symptoms or risk factors identified. Assessment: 16:40 General: Appears in no apparent distress. uncomfortable, well groomed, well developed, me1 well nourished, Behavior is calm, cooperative, appropriate for age, Reports "I think I have low calcium again, my lips and left eye are twitching, my muscles are cramping, and I feel terrible, it started after my CT with contrast yesterday." Being treated for thyroid cancer, had thyroidectomy 05/08. Pain: Complains of pain in abdomen Pain does not radiate. Pain currently is 8 out of 10 on a pain scale. Quality of pain is described as crampy, Pain began suddenly, Is episodic, lasting a few minutes. Neuro: Level of Consciousness is awake, alert, obeys commands, Oriented to person, place, time, situation, Appropriate for age. Cardiovascular: Patient's skin is warm and dry. Respiratory: Airway is patent Respiratory effort is even, unlabored, Respiratory pattern is regular, symmetrical. GI: Abdomen is non-distended, Reports lower abdominal pain, upper abdominal pain, cramping. : No signs and/or symptoms were reported regarding the genitourinary system. EENT: No signs and/or symptoms were reported regarding the EENT system. Derm: Skin is intact, is healthy with good turgor, Skin is pink, warm \\T\\ dry. Musculoskeletal: Circulation, motion, and sensation intact. Range of motion: intact in all extremities, Reports muscle twitching and cramping. Had a severe stomach cramp with nurse at bedside, tearful. Informed robinson Simental'd order for toradol. 18:21 General: Discharge delayed to finish calcium IV. me1 Vital Signs: 16:27 BP 147 / 103; Pulse 92; Resp 18; Temp 97.8; Pulse Ox 100% on R/A; Pain /10; hb 17:00 BP 122 / 88; Pulse 78; Resp 12; Pulse Ox 99% ; me1 18:00 BP 120 / 89; Pulse 75; Resp 16; Temp 98.5; Pulse Ox 98% ; me1 16:27 Pain Scale: Adult hb ED Course: 16:19 Patient arrived in ED. im 16:21 Dilia Tao MD is Attending Physician. sp3 16:30 Triage completed. hb 16:40 No provider procedures requiring assistance completed. me1 16:40 Patient has correct armband on for positive identification. Bed in low position. Call me1 light in reach. Side rails up X 1. Provided Education on: POC. Verbalized understanding.. Client placed on continuous cardiac and pulse oximetry monitoring. NIBP monitoring applied. satellite project site monitor on. Pulse ox on. NIBP on. 16:47 Gladys Thacker, RN is Primary Nurse. me1 17:08 Basic Metabolic Panel Sent. me1 17:08 Magnesium Sent. me1 17:08 LFT's Sent. me1 17:08 Troponin HS Sent. me1 17:08 T3 Free Sent. me1 17:08 T4 Free Sent. me1 17:08 T4,Total Sent. me1 17:08 Thyroid Stimulat Hormone Sent. me1 17:08 Initial lab(s) drawn, by me, sent to lab. Inserted saline lock: 22 gauge in right me1 antecubital area, using aseptic technique. 17:22 EKG done, by ED staff, reviewed by Dilia Tao MD. me1 18:49 IV discontinued, intact, bleeding controlled, No redness/swelling at site. Pressure me1 dressing applied. 18:49 Arm band placed on Patient placed in an exam room. me1 Administered Medications: 17:20 Drug: Ketorolac IVP 15 mg IVP once Route: IVP; Site: right antecubital; me1 17:46 Follow up: Response: No adverse reaction; Pain is decreased me1 17:52 Drug: Calcium Gluconate IVPB 1 grams IVPB once over 60 mins; (mix in NS 100 mL) Route: me1 IVPB; Infused Over: 60 mins; Site: right antecubital; 18:48 Follow up: Response: No adverse reaction; IV Status: Completed infusion me1 Medication: 16:40 VIS not applicable for this client. me1 Outcome: 18:03 Discharge ordered by . sp3 18:49 Discharged to home ambulatory, me1 18:49 Condition: stable 18:49 Discharge instructions given to patient, Instructed on discharge instructions, follow up and referral plans. Demonstrated understanding of instructions, follow-up care, 18:49 Patient left the ED. me1 Signatures: Starla Suarez RN RN Dilia Tao MD MD sp3 Marj Good Michelle, RN RN me1 Corrections: (The following items were deleted from the chart) 18:24 16:27 Chief complaint: "I think I have low calcium again, my lips and left eye are me1 twitching, my muscles are cramping, and I feel terrible, it started after my CT with contrast yesterday." Being treated for thyroid cancer, had thyroidectomy 05/08 hb 18:48 18:00 BP 120 / 89; Pulse 75bpm; Resp 16bpm; Pulse Ox 98%; me1 me1
[2025-07-25 19:11] VITALS: BP 120/89; TEMP 98.5; O2SAT 98
== END 2025-07-25 18:49 | disposition home or self-care (01) ==
LOC: ER 16:17
DX: E86.0 Dehydration (principal); E83.51 Hypocalcemia; R25.2 Cramp and spasm; I10 Essential (primary) hypertension; E03.9 Hypothyroidism, unspecified; E05.00 Thyrotoxicosis with diffuse goiter without thyrotoxic crisis or storm; Z88.0 Allergy status to penicillin; Z88.1 Allergy status to other antibiotic agents
CPT/HCPCS: 96365; 93005; 85025; 80048; 36415; 83735; 80076; 84436; 84443; 84484; 84481; 84439; 96375; 99285; J0612